=== PATIENT | male | born 1975 | race Caucasian/White ===

== ENCOUNTER 2018-01-15 12:17 | Emergency (ER) | payer SELFPAY ==
[2018-01-15 12:18] VITALS: PULSE 65; RESP 20; TEMP 36.4; O2SAT 98; BMI 33.0
--- NOTE | 2018-01-15 12:30 | CT_ITS ---
STUDY: CT ABDOMEN AND PELVIS WITH CONTRAST REASON FOR EXAM: Male, 42 years old. One day history of upper abdominal pain. Hypertension. Nausea and vomiting. RADIATION DOSAGE (If Supplied By Facility): CTDIvol = ( 16.62 ) mGy, DLP = ( 1641.17 ) mGycm TECHNIQUE: Transaxial images were obtained from the dome of the diaphragm to the symphysis pubis without oral contrast. 100 ml of Isovue 300 contrast was administered. Sagittal and coronal images were reconstructed. Individualized dose optimization techniques were used for this CT. COMPARISON: Comparison is made with prior study dated July 19, 2012. FINDINGS: The visualized lung bases are unremarkable. The visualized portions of the heart are within normal limits. Normal liver. Normal gallbladder and extrahepatic biliary system. Normal spleen. Normal pancreas. Normal bilateral adrenal glands. Normal right kidney. Normal left kidney. There is a small hiatal hernia. Normal small intestine. There are multiple colonic diverticula consistent with diverticulosis. The appendix is visualized and appears normal. Normal abdominal aorta. Normal inferior vena cava. There is borderline retroperitoneal lymphadenopathy with enlarged nodes no greater than 10mm in the short axis diameter. Normal urinary bladder. Normal abdominal wall. There are degenerative changes of the visualized lumbar spine. CT/Abdomen/Pelvis W IV Cont ONLY IMPRESSION: Sigmoid diverticulosis. Electronically Signed: Terrell Blair MD at 14:29 EST Tel [phone], Service support ,
--- NOTE | 2018-01-15 12:45 | ED.DCSUM_ITS ---
- ER Visit Summary Date of Service: 01/15/18 Chief Complaint: Abdominal pain, nausea, vomiting History of Present Illness: The patient is a 42 M presents to the emergency department with abdominal pain, nausea, vomiting. The patient states he has a history of gastritis and diverticulitis. He states last night, he went to a [employer] restaurant. He states he had a few alcoholic drinks. Overnight throughout the morning, he had worsening midepigastric abdominal pain. It has been associated with nausea and vomiting. He states that he is vomited approximately 6 times. He had no blood in the emesis. He does admit to some chills and sweats. He said no chest pain. Patient has no history of prior abd ominal surgery. He states that he will get flares like this from time to time. He states normally he will take Bentyl and antiemetics, but did not have any. Physical Examination: Vital signs reviewed General: Well-nourished, well-developed Head: Normocephalic, atraumatic Eyes: Pupils equal and reactive, extraocular muscles intact Neck, supple, no lymphadenopathy Heart: Regular rate and rhythm Respiratory: No distress, clear bilaterally Abdomen: Soft, mildly tender in the midepigastric area without rebound or guarding, no Garza sign, nondistended, no peritoneal signs Back: Nontender Extremities: Nontender, no edema, no cords Skin: Normal color no rash Neuro: Alert and oriented, no focal or lateralizing deficits Test Results: [] Emergency Department Course and Treatment: The patient presents with midepigastric abdominal pain, nausea, vomiting. He has minimal tenderness in the epigastric area. There is no tenderness in the right upper quadrant. I did obtain screening labs. His labs are unremarkable. His lipase is negative. With analgesics and antiemetics, his symptoms are markedly improved. I did obtain a CT which shows no evidence of obstruction or other dangerous intra- abdominal process. My suspicion is this is likely a gastritis. The patient be treated with antiemetics and Bentyl. His repeat exam is soft and nontender. He will be discharged home, return with any worsening symptoms. Treatment Plan: [] Disposition: Discharge Impression: 1. Acute midepigastric abdominal pain This note was generated with [employer] dictation software. It may contain incorrect words, spelling, and punctuation that were not noted in review of the chart prior to signing ED Disposition - Plan for ED Patient: Disposition: Home or Assisted Living Chief Complaint: Abd Pain Instructions: ED Abdominal Pain Unkn Cause Male Prescriptions: proMETHazine tablet [Phenergan] 25 mg PO Q6H PRN PRN #10 tab PRN Reason: Nausea RX: Dicyclomine HCl [Bentyl] 20 mg PO TIDAC #20 cap Referrals: Care Physician,No Primary [Primary Care Provider] -
[2018-01-15] MEDS: Morphine 4 MG/ML Syringe IV (12:47)
[2018-01-15] MEDS: 0.9% Normal Saline 1,000 ML 1000 ML IV (12:47)
[2018-01-15] MEDS: proMETHazine 25 MG/ML Syringe 12.5 MG IV (12:48)
[2018-01-15 12:49] VITALS: RESP 22; O2SAT 97
[2018-01-15 13:07] LABS: Absolute Neutrophil Count 11.3 X10^3/uL (2.0-7.7); Basophil# 0.03 X10^3/uL; Basophil% 0.2 % (0-1); Eosinophil# 0.08 X10^3/uL; Eosinophils% 0.6 % (0-5); Hematocrit 48.5 % (40-54); Hemoglobin 16.5 g/dl (13.0-16.5); Lymphocyte % 7.6 % (19-41); Mean Corpuscular Hgb 31.1 pg (27.0-32.0); Mean Corpuscular Volume 91.5 fL (80-94); Mean Platelet Vol. 11.3 fl (6.2-12.0); Monocyte# 0.71 X10^3/uL; Monocyte% 5.4 % (0-10); Neutrophil # 11.25 X10^3/uL (2.7-7.7); POSITIVE COUNT NO; POSITIVE DIFFERENTIAL NO; POSITIVE MORPHOLOGY NO; Platelet Count 243 K/mm3 (150-450); RBC Distribution Width CV 13.7 % (11.6-14.6); RBC Distribution Width SD 46.1 fl (35.1-43.9); White Blood Count 13.1 K/mm3 (4.4-11.0)
[2018-01-15] MEDS: HYDROmorphone 1 MG/ML Syringe IV (13:13)
[2018-01-15 13:17] LABS: ALB/GLOB Ratio 1.3 RATIO (0.9-2.4); AST(SGOT) 16 U/L (15-37); Alanine Aminotransfer ALT/SGPT 30 U/L (16-61); Albumin, Serum 4.4 g/dL (3.2-5.0); Alkaline Phosphatase 54 U/L (45-117); Anion Gap 9 (5-15); BUN 14 mg/dL (7-18); BUN/Creat Ratio 12.8 RATIO (10-20); Calcium,Total 9.3 mg/dL (8.5-10.1); Chloride 110 mmol/L (98-107); Creatinine, Serum 1.09 mg/dL (0.70-1.30); EST Glomerular Filtration Rate 80 mL/min (>60); Est Glom Filt Rate - Afr Amer 96 mL/min (>60); Estimated Creatinine Clearance 101.81 ml/min; Globulin 3.3 g/dL (2.2-4.2); Glucose 132 mg/dL (74-106); Lipase 230 U/L (73-393); Potassium 4.1 mmol/L (3.5-5.1); Protein, Total 7.7 g/dL (6.4-8.2); Sodium Level 142 mmol/L (136-145)
== END 2018-01-15 15:04 | disposition home or self-care (01) ==
PROVIDERS: Emergency Provider Emergency Medicine
DX: K52.9 Noninfective gastroenteritis and colitis, unspecified (principal); K21.9 Gastro-esophageal reflux disease without esophagitis; Z79.899 Other long term (current) drug therapy
CPT/HCPCS: 74177; 80053; 83690; 85025; 96361; 96374; 96375; 99284; J7030; Q9967; A4216

== ENCOUNTER 2023-06-03 08:57 | Observation (INO) | payer MEDICAID, SELFPAY ==
[2023-06-03] VITALS (8 sets, daily range): BP systolic 105–205; BP diastolic 63–121; PULSE 45–70; RESP 15–22; TEMP 36.6–37.5; O2SAT 98–100; BMI 33.7; BMI 34.2
--- NOTE | 2023-06-03 09:04 | ED.VIS.GI ---
HPI HPI - GI History of Present Illness Chief Complaint: Abd Pain Informant: patient Abdominal Pain/Flank Pain Onset: Today Context: Sudden Onset Timing: Continuous Quality: Aching, Dull and Sharp (At times) Location: Epigastric, RUQ and LUQ Worsened by: Nothing Relieved by: - (Vomiting) Nausea/Vomiting/Emesis GI Symptom: Positive for Nausea and Vomiting Onset: Today Quality: Positive for Nonbilious; Negative for Blood streaks, Coffee ground or Hematemesis Diarrhea/Melena/Hematochezia GI Symptom: Negative for Diarrhea, Melena or Hematochezia Associated Symptoms Associated Symptoms: Negative for Dysuria, Frequency or Hematuria Narrative Narrative: Patient presents with abdominal pain that began this morning. Patient states it began rather suddenly this morning when he woke up. Patient states the pain is constant. Patient describes the pain as dull and aching but sharp at times. Patient states the pain is over the upper abdomen. Patient states it gets better after he vomits. Patient states nothing makes it worse. Patient denies any hematemesis or coffee-ground emesis. Patient denies any diarrhea, melena, or hematochezia. Patient denies any urinary complaints. [facility] Medical History (Updated 06/03/23 @ 13:[address] Vidal Novoa, DO) Pancreatitis Home Medications albuterol sulfate 90 mcg/actuation aerosol inhaler (ProAir HFA) 2 inh inhalation Q6H PRN shortness of breath or wheezing 06/03/23 [History Last Taken 06/03/23] Allergy/AdvReac Type Severity Reaction Status Date / Time No Known Allergies Allergy Verified 06/03/23 08:57 Social History Smoking Status: Current every day smoker tobacco type: e-cigarettes ROS ROS ED Constitutional Constitutional ED: Reports chills and subjective; Denies fever(s) Eyes Eyes: Denies blurry vision or change in vision ENT ENT ED: Denies rhinorrhea or sore throat Cardiovascular Cardiovascular: Denies chest pain or palpitations Respiratory/Chest Respiratory/Chest: Denies cough or dyspnea Gastrointestinal Gastrointestinal: Reports abdominal pain, nausea and vomiting; Denies diarrhea or melena Genitourinary Genitourinary ED: Denies dysuria or hematuria Musculoskeletal Musculoskeletal: Reports back pain and neck pain Integumentary Denies abscess or rash Neurologic Neurologic: Denies headache(s) or weakness Allergic/Immunologic Allergic/Immunologic ED: Denies mouth swelling or urticaria EXAM Physical Exam Const Vital Signs: 06/03/23 08:57 06/03/23 08:57 06/03/23 11:42 Temperature 99 F 98 F Temperature Source Temporal Oral Pulse Rate 59 L 61 67 Respiratory Rate 22 H 59 H 15 Blood Pressure 205/121 H 164/113 H 129/88 H Blood Pressure Mean 149 130 101 Pulse Ox 98 100 98 Oxygen Delivery Method Room Air Room Air Room Air Positive well nourished, well developed and obese General Appearance ED: well developed and NAD Nutritional Appearance: obese HEENT Reports moist mucous membranes Neck supple and no JVD Resp normal respiratory effort and clear to auscultation bilaterally Cardio regular rate and regular rhythm GI non-distended Palpation: soft and tender epigastric, LUQ and RUQ; Negative for guarding or rebound tenderness present Neuro CN's II-XII intact bilaterally, moves all extremities and no sensory deficits noted Sensorium / Orientation: alert Motor Exam: strength 5/5 throughout MDM MDM MDM Narrative Medical decision making narrative: Differential diagnosis includes pancreatitis, gastritis, GERD, bowel obstruction, perforation, electrolyte abnormality, and anemia. CBC will be obtained to assess for leukocytosis and anemia. Comprehensive metabolic profile will be obtained to assess for hepatic function, renal function, and electrolyte abnormality. Lipase will be obtained to assess for pancreatitis. CT scan of the abdomen pelvis will be obtained to assess for bowel obstruction and perforation. Lab Data Attestation: I reviewed the patient's lab results. Lab results narrative: CBC was reviewed and was within normal limits. Comprehensive metabolic profile was reviewed and was essentially within normal limits. Lipase was reviewed and was elevated at 476. Labs: Laboratory Results - last 24 hr 06/03/23 09:10 WBC 8.9 RBC 5.32 Hgb 16.0 Hct 48.4 MCV 91.0 MCH 30.1 MCHC 33.1 RDW Std Deviation 44.9 H RDW Coeff of Sulema 13.4 Plt Count 290 MPV 11.4 Immature Gran % (Auto) 0.300 Neut % (Auto) 74.7 H Lymph % (Auto) 13.8 L [place] % (Auto) 7.1 Eos % (Auto) 2.9 Baso % (Auto) 1.2 H Absolute Neuts (auto) 6.7 Absolute Lymphs (auto) 1.23 Nucleated RBC % 0 Sodium 140 Potassium 4.2 Chloride 108 H Carbon Dioxide 26.0 Anion Gap 6 BUN 11 Creatinine 1.25 Estim Creat Clear Calc 99.58 Est GFR (MDRD) Af Amer 80 Est GFR (MDRD) Non-Af 66 BUN/Creatinine Ratio 8.8 L Glucose 123 H Calcium 9.3 Total Bilirubin 0.50 AST 20 ALT 37 Alkaline Phosphatase 58 Total Protein 7.6 Albumin 4.1 Globulin 3.5 Albumin/Globulin Ratio 1.2 Lipase 476 H Radiography Diagnostic Testing: Clinical Impression(s) from Imaging Studies Abdomen/Pelvis CT 06/03/23 11:18 IMPRESSION: 1. Diffuse thickening of the colon extending from the cecum to the rectum concerning for colitis. Under distention is possible. 2. Hepatic steatosis. 3. Small hiatal hernia. Electronically Signed: Gordo Carrera MD at 12:05 EDT , CT scan of the abdomen pelvis was obtained. There is hepatic steatosis. There is no evidence of pancreatic pseudocyst. There is diffuse thickening of the colon extending from the cecum to the rectum concerning for colitis. This was interpreted by the radiologist and was also independently reviewed by myself. Management Discussion w/another healthcare provider: Hospitalist and Shredder Picker (Dr. Sanchez from gastroenterology) Treatment and Re-Evaluation :: Patient was given IV fluids, morphine, and Zofran. Patient was also given a dose of Bentyl. Patient was advised of his findings. Patient was advised of need for hospitalization. Case was discussed with the hospitalist. He will admit the patient to his service. Case was also discussed with Dr. Sanchez from gastroenterology. He will follow along with the patient. Patient understood and was agreeable with the plan. All questions were answered. Discharge Plan Triage Chief Complaint: Abd Pain ED Provider: Vidal Novoa Dx/Rx/DC Orders Clinical Impression: Acute pancreatitis, HTN (hypertension), Colitis Prescriptions: No Action albuterol sulfate [ProAir HFA] 90 mcg/actuation HFA aerosol inhaler 2 inh inhalation Q6H PRN (Reason: shortness of breath or wheezing) Primary Care Provider: Care Physician,No Primary Referrals: Care Physician,No Primary [Primary Care Provider] - Disposition Disposition: Acute Care Hospital [facility]
[2023-06-03 09:36] LABS: Absolute Lymphocyte Count 1.23 X10^3/uL (0.83-4.51); Absolute Neutrophil Count 6.7 X10^3/uL (2.0-7.7); Basophil# 0.11 X10^3/uL; Basophil% 1.2 % (0-1); Eosinophil# 0.26 X10^3/uL; Eosinophils% 2.9 % (0-5); Hematocrit 48.4 % (40-54); Lymphocyte # 1.23 X10^3/ul (0.83-4.51); Lymphocyte % 13.8 % (19-41); Mean Corp Hgb Conc 33.1 g/dL (32-36); Mean Corpuscular Hgb 30.1 pg (27.0-32.0); Mean Platelet Vol. 11.4 fl (6.2-12.0); Monocyte# 0.63 X10^3/uL; Monocyte% 7.1 % (0-10); NRBC Flagged by Analyzer 0 % (0-5); Neutrophil # 6.67 X10^3/uL (2.7-7.7); Neutrophil % 74.7 % (47-70); Platelet Count 290 K/mm3 (150-450); RBC Distribution Width CV 13.4 % (11.6-14.6); RBC Distribution Width SD 44.9 fl (35.1-43.9); Red Blood Count 5.32 M/mm3 (4.6-6.2); White Blood Count 8.9 K/mm3 (4.4-11.0)
[2023-06-03] MEDS: Morphine 4 MG/ML Syringe IV (09:52)
[2023-06-03] MEDS: Ondansetron 4 MG/2 ML Vial IV ×2 (09:52→14:38)
[2023-06-03] MEDS: 0.9% Normal Saline (1000mL) 1,000 ML 1000 ML IV (09:53)
[2023-06-03 11:02] LABS: ALB/GLOB Ratio 1.2 RATIO (0.9-2.4); AST(SGOT) 20 U/L (15-37); Alanine Aminotransfer ALT/SGPT 37 U/L (16-61); Albumin, Serum 4.1 g/dL (3.2-5.0); Alkaline Phosphatase 58 U/L (45-117); Anion Gap 6 (5-15); BUN 11 mg/dL (7-18); BUN/Creat Ratio 8.8 RATIO (10-20); Calcium,Total 9.3 mg/dL (8.5-10.1); Chloride 108 mmol/L (98-107); Creatinine, Serum 1.25 mg/dL (0.70-1.30); EST Glomerular Filtration Rate 66 mL/min (>60); Est Glom Filt Rate - Afr Amer 80 mL/min (>60); Estimated Creatinine Clearance 99.58 ml/min; Globulin 3.5 g/dL (2.2-4.2); Glucose 123 mg/dL (74-106); Lipase 476 U/L (13-75); Potassium 4.2 mmol/L (3.5-5.1); Protein, Total 7.6 g/dL (6.4-8.2); Sodium Level 140 mmol/L (136-145)
--- NOTE | 2023-06-03 11:18 | CT_ITS ---
STUDY: CT ABDOMEN AND PELVIS WITH CONTRAST - URINARY TRACT REASON FOR EXAM: Male, 47 years old. PAIN RADIATION DOSAGE (If Supplied By Facility): CTDIvol = ( 21.91 ) mGy, DLP = ( 1375.58 ) mGycm TECHNIQUE: IV 100mL Isovue-370 was administered. Transaxial images were obtained from the dome of the diaphragm to the symphysis pubis in the arterial, nephrographic and excretory phases. Multiplanar coronal and sagittal images were reformatted. Individualized Dose Optimization Techniques Were Used For This CT. COMPARISON: No relevant prior comparison study available FINDINGS: The visualized lung bases are unremarkable. The visualized portions of the heart are within normal limits. There is decreased attenuation of the liver consistent with steatosis. Normal gallbladder and extrahepatic biliary system. Normal spleen. Normal pancreas. Normal bilateral adrenal glands. There is a small hiatal hernia. Normal small intestine. Diffuse thickening of the colon extending from the cecum to the rectum concerning for colitis. Under distention is possible.. The appendix is visualized and appears normal. No evidence of abdominal aortic aneurysm. No retroperitoneal adenopathy. Normal right kidney. Normal left kidney. Normal urinary bladder. Normal abdominal wall. Mild degenerative changes of the spine. CT/Abdomen/Pelvis W IV Cont ONLY IMPRESSION: 1. Diffuse thickening of the colon extending from the cecum to the rectum concerning for colitis. Under distention is possible. 2. Hepatic steatosis. 3. Small hiatal hernia. Electronically Signed: Gordo Carrera MD at 12:05 EDT ,
[2023-06-03] MEDS: Dicyclomine 20 MG/2 ML Vial IM (11:39)
--- NOTE | 2023-06-03 12:56 | HP.PCM.HOS_ITS ---
HPI - General General Date of Admission: 06/03/23 Date of Service: 06/03/23 Chief Complaint: abdominal pain HPI Narrative RADHA WILKES, is a 47 M who presented to [facility] ED on 06/03/2023 with worsening abdominal pain. Patient seen at bedside in the ED. Patient was sitting up in bed and appeared moderately uncomfortable during our encounter. Stated that his abdominal pain began early this morning and worsened quickly causing him to come in for further evaluation. Was found on CT abdomen/pelvis w/ IV contrast to have diffuse thickening of the colon extending from the cecum to the rectum concerning for colitis. Labs were notable for benign CBC and CMP but lipase was elevated at 476. Was noted by ED physician that patient had history of pancreatitis, and due to concern for recurrent pancreatitis as well as colitis, hospitalist was contacted for admission. On further history from patient as well as chart review of [facility] records, noted that patient had history of chronic pancreatitis back in 2019 secondary to pancreatic divisum. Had ERCP with stent placement in 01/2020 done at [facility] that was complicated by severe post-ERCP pain and N/V with lipase > 9K necessitating transfer to [facility] for further management for post-ERCP pancreatitis. Had repeat ERCP w/ stent removal at [facility] 5 days after stent placement. Patient notes today that he was incarcerated for the past few years, was recently released from jail in January. This episode today is his second attack since January. He denies any significant abdominal issues while incarcerated. He does smoke marijuana on a daily basis but reports very occasional alcohol use. He is not taking any home meds at this time. Patient denies any other health concerns over the past few years. He currently denies any fevers/chills. Primary concern is ongoing abdominal pain with nausea/vomiting. States that the abdominal pain is primarily epigastric, has minimal in the mid to lower abdomen. Has had a few episodes of diarrhea this morning, was otherwise having normal BM's til today. Denies any dark or bloody BM's. Denies any acid reflux symptoms recently. No other acute concerns. [facility] Medical History (Updated 06/03/23 @ 14:01 by Christine Bueno) Colitis Diverticulitis Intestinal ulcer Marijuana dependence Pancreatitis Home Medications albuterol sulfate 90 mcg/actuation aerosol inhaler (ProAir HFA) 2 inh inhalation Q6H PRN shortness of breath or wheezing 06/03/23 [History Last Taken 06/03/23] Allergy/AdvReac Type Severity Reaction Status Date / Time No Known Allergies Allergy Verified 06/03/23 08:57 Social History Smoking Status: Former smoker ROS Constitutional Constitutional: Denies chills, fatigue, fever(s) or weakness Eyes Eyes: Denies change in vision Cardiovascular Cardiovascular: Denies chest pain Respiratory/Chest Respiratory/Chest: Denies shortness of breath at rest Gastrointestinal Gastrointestinal: Reports abdominal pain, diarrhea, nausea and vomiting; Denies constipation or dyspepsia Genitourinary Genitourinary: Denies dysuria Vital Signs Vital Signs Vital Signs: 06/03/23 08:57 06/03/23 08:57 06/03/23 11:42 Temperature 99 F 98 F Temperature Source Temporal Oral Pulse Rate 59 L 61 67 Respiratory Rate 22 H 59 H 15 Blood Pressure 205/121 H 164/113 H 129/88 H Blood Pressure Mean 149 130 101 Pulse Ox 98 100 98 Oxygen Delivery Method Room Air Room Air Room Air Weight Weight: 116 kg Body Mass Index (BMI) 33.7 Physical Exam Const alert and oriented x3 Constitutional Narrative: Middle aged male, obese, sitting up in bed, conversing normally, moderate dis comfort noted due to abdominal pain. General Appearance: cooperative HEENT normocephalic, head/scalp atraumatic, hearing grossly normal bilaterally and nasal mucous membranes and turbinates normal Eyes PERRL, EOMs intact bilaterally and conjunctivae normal Neck full ROM Chest inspection of chest normal Resp normal respiratory effort, normal air movement, no use of accessory muscles and clear to auscultation bilaterally Cardio regular rate, regular rhythm, no murmurs and peripheral pulses 2+ throughout GI GI Narrative: Moderate tenderness to palpation in epigastric area, no tenderness in mid to lower abdomen w/ palpation. Abdomen soft and non-distended. No guarding or rebound tenderness noted. Back/Spine normal ROM Extremity normal to inspection, full ROM and no pedal edema Skin no rashes or lesions noted Neuro moves all extremities and no focal motor deficits Speech: speech normal Psych mental status grossly normal Results Lab / Micro Data 06/03/23 09:10 06/03/23 09:10 Labs: Laboratory Results - last 24 hr 06/03/23 09:10: WBC 8.9, RBC 5.32, Hgb 16.0, Hct 48.4, MCV 91.0, MCH 30.1, MCHC 33.1, RDW Std Deviation 44.9 H, RDW Coeff of Sulema 13.4, Plt Count 290, MPV 11.4, Immature Gran % (Auto) 0.300, Neut % (Auto) 74.7 H, Lymph % (Auto) 13.8 L, [place] % (Auto) 7.1, Eos % (Auto) 2.9, Baso % (Auto) 1.2 H, Absolute Neuts (auto) 6.7, Absolute Lymphs (auto) 1.23, Nucleated RBC % 0, Sodium 140, Potassium 4.2, Chloride 108 H, Carbon Dioxide 26.0, Anion Gap 6, BUN 11, Creatinine 1.25, Estim Creat Clear Calc 99.58, Est GFR (MDRD) Af Amer 80, Est GFR (MDRD) Non-Af 66, BUN/Creatinine Ratio 8.8 L, Glucose 123 H, Calcium 9.3, Total Bilirubin 0.50, AST 20, ALT 37, Alkaline Phosphatase 58, Total Protein 7.6, Albumin 4.1, Globulin 3.5, Albumin/Globulin Ratio 1.2, Lipase 476 H Imaging Radiology Impression Abdomen/Pelvis CT 06/03/23 11:18 IMPRESSION: 1. Diffuse thickening of the colon extending from the cecum to the rectum concerning for colitis. Under distention is possible. 2. Hepatic steatosis. 3. Small hiatal hernia. Electronically Signed: Gordo Carrera MD at 12:05 EDT , Assessment & Plan Assessment/Plan (1) Colitis: (2) Acute pancreatitis: PLAN: Plan Patient is a 47 M who presented to [facility] ED on 06/03/2023 with worsening abdominal pain. 1. Intractable nausea/vomiting with abdominal pain, concern for recurrent pancreatitis, concern for colitis of unclear etiology CTAP w/ IV contrast on admit showed diffuse thickening of colon extending from cecum to rectum concerning for colitis, as well as hepatic steatosis, normal pancreas, no other concerning findings. Lipase 476. Labs otherwise benign. Afebrile, hemodynamically stable on room air on admit. - Admit under inpatient status to [facility]. GI consulted. Differential dx for colitis is broad as noted by GI. Patient will need both upper and lower endoscopy for further evaluation. Remain n.p.o. for now. Maintenaince IV fluids. Several labs ordered including stool PCR, stool WBC and calprotectin, autoimmune workup per GI. Okay to treat w/ IV cipro and IV flagyl for now. 2. Marijuana use, concern for cyclic vomiting syndrome - Patient reports smoking marijuana daily over past few years. Did report an intermittent pattern of vomiting and nausea w/ BM's, w/ hot showers helping to relieve his nausea. Encouraged cessation. 3. Obesity - BMI 34 on admit. Encouraged lifestyle modifications. Complicates hospital course, care and prognosis. DVT prophylaxis: Lovenox Code status: Full code, verified Expected disposition: Home, TBD Total clinical time spent by myself addressing the patient's medical issues, reviewing all the data, and collaborating with patient's care team: 35 minutes. Charges/Coding Visit Charges Inpatient E&M: 31239 Init Hosp L2
[2023-06-03 13:59] LABS: Erythrocyte Sedimentation Rate < 1 mm/hr (0-20)
[2023-06-03] MEDS: Lactated Ringers 1,000 ML 125 ML IV (14:08)
[2023-06-03] MEDS: HYDROmorphone 0.5 MG/0.5 ML SYRINGE IV ×2 (14:09→18:07)
[2023-06-03] MEDS: metroNIDAZOLE 500 MG/100 ML BAG 100 MG IV ×2 (14:33→21:02)
[2023-06-03] MEDS: 0.9% Saline Lock 10 ML Syringe IV ×2 (14:38→18:07)
[2023-06-03 14:46] LABS: Hemoglobin A1c 5.2 % (3.8-5.6)
[2023-06-03 15:06] LABS: Alcohol, Blood (Medical)-Serum < 3.0 mg/dL
[2023-06-03 15:13] LABS: CRP < 2.90 mg/L (0.0-3.0); Cholesterol 225 mg/dL (200); High Density Lipoprotein 40 mg/dL; Triglycerides 182 mg/dL; Very Low Density Lipoprotein 36 mg/dL (5-40)
--- NOTE | 2023-06-03 15:40 | CON.PCM.GI_ITS ---
HPI Consult Data Date of Consult: 06/03/23 HPI Narrative Reason for Consultation: abdominal pain HPI Narrative: RADHA WILKES, is a 47 M who presents with abdominal pain that began this morning. Patient states it began rather suddenly this morning when he woke up. Patient states the pain is constant. Patient describes the pain as dull and aching but sharp at times. Patient states the pain is over the upper abdomen. Patient states it gets better after he vomits. Patient states nothing makes it worse. Patient denies any hematemesis or coffee-ground emesis. Patient denies any diarrhea, melena, or hematochezia. Patient denies any urinary complaints. He had a similar presentation where he presented to the hospital approximately 12 years ago and was seen by Dr. Garza who is a local chartered financial analyst at that time. He has been intermittently here to the hospital for worsening abdominal pain and was discovered to have a hyper lipase anemia without imaging confirming pancreatitis. Current CT scan abdomen pelvis displays: 1. Diffuse thickening of the colon extending from the cecum to the rectum concerning for colitis. Under distention is possible. 2. Hepatic steatosis. 3. Small hiatal hernia. [facility] Medical History (Updated 06/03/23 @ 14:01 by Christine Bueno) Colitis Diverticulitis Intestinal ulcer Marijuana dependence Pancreatitis Home Medications albuterol sulfate 90 mcg/actuation aerosol inhaler (ProAir HFA) 2 inh inhalation Q6H PRN shortness of breath or wheezing 06/03/23 [History Last Taken 06/03/23] Allergy/AdvReac Type Severity Reaction Status Date / Time No Known Allergies Allergy Verified 06/03/23 08:57 Social History Smoking Status: Former smoker ROS Review of Systems ROS Unobtainable: other Constitutional Constitutional: Denies fatigue, fever(s), poor appetite, weight gain or weight loss ENT HEENT: Denies mouth lesions Cardiovascular Cardiovascular: Denies abdominal bloating, abdominal edema or abdominal pain Respiratory/Chest Respiratory/Chest: Denies change in mental status, change in phlegm color, chest congestion or chest tightness Gastrointestinal Gastrointestinal: Denies belching, bloating, change in bowel habits, change in stool character, chewing difficulty, coffee ground emesis, constipation, cramping, diarrhea, dyspepsia, dysphagia, early satiety, excessive flatus, fecal incontinence, heartburn, hematemesis, hematochezia, hemorrhoids, loose stools, melena, nausea, odynophagia, rectal bleeding, tenesmus, vomiting or weight changes Genitourinary Genitourinary: Denies abdominal discomfort, burning urination or itching Musculoskeletal Musculoskeletal: Reports as per HPI; Denies muscle weakness or myalgias Integumentary Integumentary: Denies jaundice Neurologic Neurologic: Denies lack of coordination or weakness Psychiatric Psychiatric: Denies confusion, depression, memory loss, mood swings, paranoia or suicidal ideation Endocrine Endocrinology: Denies systems reviewed and no addt'l complaints, except as documented Hematologic/Lymphatic Hematologic/Lymphatic: Denies anemia, easy bleeding, easy bruising or lymphadenopathy Allergic/Immunologic Allergic/Immunologic: Denies systems reviewed and no addt'l complaints, except as documented Physical Exam Const alert, oriented x3, no apparent distress, healthy appearing and well nourished General Appearance: cooperative, comfortable, well kempt and well developed Orientation / Consciousness: awake and oriented to person HEENT Head and Scalp: normocephalic and atraumatic Face and Sinus: normal facial exam Mouth: oral and palatal mucosa normal Eyes General Eye: normal appearance of both eyes Neck full ROM Lymph Lymphatic: no lymphadenopathy noted Chest inspection of chest normal Resp normal respiratory effort and no use of accessory muscles Cardio regular rate and regular rhythm GI normal to inspection, nondistended, normoactive bowel sounds, soft to palpation, non-tender, non-distended and no masses Auscultation: normoactive bowel sounds Palpation: soft Percussion: normal to percussion Rectal Exam: visual inspection normal and normal sphincter tone no CVA tenderness Back/Spine no CVA tenderness and normal ROM Extremity normal to inspection Peripheral Pulses: Yes pulses 2+ throughout Skin no rashes or lesions noted General Skin Exam: no breakdown, elasticity normal and turgor normal Neuro oriented x3 Motor Exam: strength 5/5 throughout Psych mental status grossly normal Appearance: grossly normal Attitude: calm Activity / Motor Behavior: appropriate eye contact Speech: normal speech Thought Process: normal thought process Thought Content: normal thought content Attention / Concentration: attention grossly intact Memory / Cognition: memory grossly intact Insight: insight good Judgement: judgement good Lab / Micro Data 06/03/23 09:10 06/03/23 09:10 Labs: Laboratory Results - last 24 hr 06/03/23 09:10: WBC 8.9, RBC 5.32, Hgb 16.0, Hct 48.4, MCV 91.0, MCH 30.1, MCHC 33.1, RDW Std Deviation 44.9 H, RDW Coeff of Sulema 13.4, Plt Count 290, MPV 11.4, Immature Gran % (Auto) 0.300, Neut % (Auto) 74.7 H, Lymph % (Auto) 13.8 L, [place] % (Auto) 7.1, Eos % (Auto) 2.9, Baso % (Auto) 1.2 H, Absolute Neuts (auto) 6.7, Absolute Lymphs (auto) 1.23, Nucleated RBC % 0, ESR < 1, Sodium 140, Potassium 4.2, Chloride 108 H, Carbon Dioxide 26.0, Anion Gap 6, BUN 11, Creatinine 1.25, Estim Creat Clear Calc 99.58, Est GFR (MDRD) Af Amer 80, Est GFR (MDRD) Non-Af 66, BUN/Creatinine Ratio 8.8 L, Glucose 123 H, Hemoglobin A1c 5.2, Calcium 9.3, Total Bilirubin 0.50, AST 20, ALT 37, Alkaline Phosphatase 58, C-React Prot Ext Range < 2.90, Total Protein 7.6, Albumin 4.1, Globulin 3.5, Albumin/Globulin Ratio 1.2, Triglycerides 182, Cholesterol 225 H, LDL Cholesterol 149 H, VLDL Cholesterol 36, HDL Cholesterol 40, Lipase 476 H 06/03/23 14:35: Ethyl Alcohol < 3.0 Imaging Radiology Impression Abdomen/Pelvis CT 06/03/23 11:18 IMPRESSION: 1. Diffuse thickening of the colon extending from the cecum to the rectum concerning for colitis. Under distention is possible. 2. Hepatic steatosis. 3. Small hiatal hernia. Electronically Signed: Gordo Carrera MD at 12:05 EDT , Assessment & Plan Assessment/Plan (1) Marijuana smoker: (2) Personality disorder: (3) Acute pancreatitis: (4) Colitis: PLAN: Plan 47 year old, with a history of obesity, personality disorder, and g astroesophageal reflux presented to [facility] with a two-day history of severe nausea and intractable vomiting. The vomiting began with no identifiable precipitating factor, was bilious but non-bloody, and occurred as frequently as six times per hour. The patient reported abdominal pain and lightheadedness secondary to dehydration but denied any fever, coryza, change in bowel movements, or sick contacts. The patient had been experiencing similar episodes recurrently for the past 2 years, frequently associated with life stressors and requiring at least five previous hospitalizations.? However he does have elevated amylase lipase and CT findings of diffuse colitis. He also has a family member with Crohn's disease. Notably, however, the patient had been an intermittent, recreational marijuana u ser for many years prior but had escalated to daily use over the past 2 years for symptom relief, citing the known antiemetic effects of cannabis. In addition, he described an intermittent pattern of bathing, stating that he often felt nauseated when having bowel movements and had discovered that transitioning directly from the toilet to a hot shower helped resolve his nausea. . Differential diagnosis does include: Marijuana hyperemesis with ischemic colitis, infectious colitis, gastroparesis, gastritis, duodenitis, inflammatory bowel disease, celiac disease, eosinophilic gastroenteritis. He should undergo an upper and lower endoscopy to evaluate his upper lower GI tract with biopsies in his esophagus stomach small bowel and colon. He should have his stools checked for enteric pathogens. He should also have autoimmune workup including ANCA, [place], ESR, CRP, IgG4, food allergy testing, MRI , serum and urine electrophoresis. Charges/Coding Visit Charges Inpatient E&M: 38042 Init Hosp L3
[2023-06-03] MEDS: oxyCODONE 5 MG Tablet PO ×2 (15:48→21:03)
[2023-06-03] MEDS: Ciprofloxacin 400 MG/200 ML BAG 200 MG IV ×2 (15:49→21:02)
[2023-06-03] MEDS: Acetaminophen 325 MG Tablet 650 MG PO (15:49)
[2023-06-03 17:21] LABS: Erythrocyte Sedimentation Rate 3 mm/hr (0-20)
[2023-06-03 17:32] LABS: CRP < 2.90 mg/L (0.0-3.0)
[2023-06-03] MEDS: proCHLORPERazine 10 MG/2 ML Vial 5 MG IV (21:08)
[2023-06-04] MEDS: Lactated Ringers 1,000 ML 125 ML IV ×2 (01:59→09:54)
[2023-06-04] MEDS: oxyCODONE 5 MG Tablet PO ×2 (02:04→19:57)
[2023-06-04 03:34] LABS: Amphetamine Urine VISTA NEGATIVE (<1000 ng/mL); Barbiturate Urine VISTA NEGATIVE (< 200 ng/mL); Benzodiazepine Urine VISTA NEGATIVE (< 200 ng/mL); Cocaine Urine VISTA NEGATIVE (< 300 ng/mL); Ecstacy Urine VISTA NEGATIVE (< 500 ng/mL); Methadone Urine VISTA NEGATIVE (< 300 ng/mL); PCP Urine VISTA NEGATIVE (< 25 ng/mL); THC Urine VISTA POSITIVE (< 50 ng/mL); Vista UDS pH Range 7
[2023-06-04] MEDS: HYDROmorphone 0.5 MG/0.5 ML SYRINGE IV ×4 (03:40→23:02)
[2023-06-04] MEDS: metroNIDAZOLE 500 MG/100 ML BAG 100 MG IV ×3 (05:40→21:19)
[2023-06-04 07:18] LABS: Hemoglobin 13.4 g/dL (13.0-16.5); Mean Corp Hgb Conc 33.5 g/dL (32-36); Mean Corpuscular Hgb 30.1 pg (27.0-32.0); Mean Corpuscular Volume 89.9 fL (80-94); Mean Platelet Vol. 11.4 fl (6.2-12.0); Platelet Count 243 K/mm3 (150-450); RBC Distribution Width CV 13.4 % (11.6-14.6); RBC Distribution Width SD 44.2 fl (35.1-43.9); Red Blood Count 4.45 M/mm3 (4.6-6.2)
[2023-06-04 07:33] VITALS: O2SAT 97
[2023-06-04 08:12] LABS: Anion Gap 5 (5-15); BUN 15 mg/dL (7-18); BUN/Creat Ratio 13.3 RATIO (10-20); Calcium,Total 8.2 mg/dL (8.5-10.1); Chloride 110 mmol/L (98-107); Creatinine, Serum 1.13 mg/dL (0.70-1.30); EST Glomerular Filtration Rate 74 mL/min (>60); Est Glom Filt Rate - Afr Amer 90 mL/min (>60); Estimated Creatinine Clearance 110.85 ml/min; Glucose 105 mg/dL (74-106); Potassium 3.6 mmol/L (3.5-5.1); Sodium Level 141 mmol/L (136-145)
[2023-06-04] MEDS: Ciprofloxacin 400 MG/200 ML BAG 200 MG IV ×2 (09:53→22:20)
[2023-06-04] MEDS: Enoxaparin 40 MG/0.4 ML Syringe SC (09:53)
[2023-06-04 09:59] VITALS: BP 135/88; PULSE 68; RESP 14; TEMP 36.6; O2SAT 100
--- NOTE | 2023-06-04 10:59 | PN.HOSP_ITS ---
Reason for Visit Reason for Visit: Diagnoses Cannabis dependence, uncomplicated (06/03/23) Personality disorder, unspecified (06/03/23) Noninfective gastroenteritis and colitis, unspecified (06/03/23) Acute pancreatitis without necrosis or infection, unspecified (06/03/23) Subjective Subjective No acute events overnight. Patient seen at bedside this morning. Appears much more comfortable this morning than he did in the ED yesterday. He was sitting up comfortably in bed, conversing normally and in no acute distress. Patient does state that he just received more pain medication 30 minutes to an hour ago and this was helpful for him. Generally states that his pain in the epigastric area is moderately improved from yesterday. He has not had any bowel movement since admission and denies any lower abdominal pain. He has been n.p.o. since admission, notes that he does feel moderately hungry this morning but does state that he has a bit fearful about trying p.o. intake in case this causes nausea and vomiting. Denies any fevers or chills. No other acute concerns this morning. Objective Data Objective Data Vital Signs: Vital Signs Temp Pulse Resp BP Pulse Ox O2 Del Method 98 F 68 14 135/88 H 100 Room Air 06/04/23 09:59 06/04/23 09:59 06/04/23 09:59 06/04/23 09:59 06/04/23 09:59 06/04/23 09:59 Oxygen Delivery Method Room Air Weight: 117.48 kg Body Mass Index (BMI) 34.2 Intake & Output: Intake and Output for Last 24 Hours 06/02/23 06/03/23 06/04/23 23:59 23:59 23:59 Intake Total 1652.08 / 1652.08 2039.58 / 2038.58 Output Total 500 / 500 Balance 1152.08 / 1152.08 2038.58 / 2038.58 Lab / Micro Data 06/04/23 06:42 06/04/23 06:42 Labs: Laboratory Results - last 24 hr 06/03/23 09:10: ESR < 1, Sodium 140, Potassium 4.2, Chloride 108 H, Carbon Dioxide 26.0, Anion Gap 6, BUN 11, Creatinine 1.25, Estim Creat Clear Calc 99. 58, Est GFR (MDRD) Af Amer 80, Est GFR (MDRD) Non-Af 66, BUN/Creatinine Ratio 8.8 L, Glucose 123 H, Hemoglobin A1c 5.2, Calcium 9.3, Total Bilirubin 0.50, AST 20, ALT 37, Alkaline Phosphatase 58, C-React Prot Ext Range < 2.90, Total Protein 7.6, Albumin 4.1, Globulin 3.5, Albumin/Globulin Ratio 1.2, Triglycerides 182, Cholesterol 225 H, LDL Cholesterol 149 H, VLDL Cholesterol 36, HDL Cholesterol 40, Lipase 476 H 06/03/23 14:35: Ethyl Alcohol < 3.0 06/03/23 16:50: ESR 3, C-React Prot Ext Range < 2.90 06/04/23 02:50: Urine Opiates Screen POSITIVE H, Urine Methadone Screen NEGATIVE, Ur Barbiturates Screen NEGATIVE, Ur Phencyclidine Scrn NEGATIVE, Ur Amphetamines Screen NEGATIVE, MDMA (Ecstasy) Screen NEGATIVE, U Benzodiazepines Scrn NEGATIVE, Urine Cocaine Screen NEGATIVE, U Cannabinoids Screen POSITIVE H, Ur Drug Screen Comment 06/04/23 06:42: WBC 10.0, RBC 4.45 L, Hgb 13.4, Hct 40.0, MCV 89.9, MCH 30.1, MCHC 33.5, RDW Std Deviation 44.2 H, RDW Coeff of Sulema 13.4, Plt Count 243, MPV 11.4, Sodium 141, Potassium 3.6, Chloride 110 H, Carbon Dioxide 26.0, Anion Gap 5, BUN 15, Creatinine 1.13, Estim Creat Clear Calc 110.85, Est GFR (MDRD) Af Amer 90, Est GFR (MDRD) Non-Af 74, BUN/Creatinine Ratio 13.3, Glucose 105, Calcium 8.2 L Radiography Diagnostic Testing: Radiology Impression Abdomen/Pelvis CT 06/03/23 11:18 IMPRESSION: 1. Diffuse thickening of the colon extending from the cecum to the rectum concerning for colitis. Under distention is possible. 2. Hepatic steatosis. 3. Small hiatal hernia. Electronically Signed: Gordo Carrera MD at 12:05 EDT , Physical Exam Const alert and oriented x3 Constitutional Narrative: Middle aged male, obese, appears much improved from admission, sitting up comfortably in bed, conversing normally, in no acute distress. General Appearance: cooperative HEENT normocephalic, head/scalp atraumatic, hearing grossly normal bilaterally and nasal mucous membranes and turbinates normal Eyes PERRL, EOMs intact bilaterally and conjunctivae normal Neck full ROM Chest inspection of chest normal Resp normal respiratory effort, normal air movement, no use of accessory muscles and clear to auscultation bilaterally Cardio regular rate, regular rhythm, no murmurs and peripheral pulses 2+ throughout GI GI Narrative: Very mild tenderness to palpation in epigastric area. No tenderness in mid to lower abdomen on palpation. Abdomen soft and nondistended, no guarding or rebound tenderness noted. Back/Spine normal ROM Extremity normal to inspection, full ROM and no pedal edema Skin no rashes or lesions noted Neuro moves all extremities and no focal motor deficits Speech: speech normal Psych mental status grossly normal Assessment & Plan Assessment/Plan (1) Colitis: (2) Acute pancreatitis: PLAN: Plan Patient is a 47 M who presented to [facility] ED on 06/03/2023 with worsening abdominal pain. 1. Intractable nausea/vomiting with abdominal pain, concern for recurrent pancreatitis, concern for colitis of unclear etiology CTAP w/ IV contrast on admit showed diffuse thickening of colon extending from cecum to rectum concerning for colitis, as well as hepatic steatosis, normal pancreas, no other concerning findings. Lipase 476. Labs otherwise benign. Afebrile, hemodynamically stable on room air on admit. ? GI following. Differential dx for colitis is broad as noted by GI. Patient will need both upper and lower endoscopy for further evaluation. Patient appears much improved from pain standpoint on hospital day 2. Will trial liquid diet with slow advancement, with plan to make patient n.p.o. again at midnight for MRCP, gastric emptying study and possible scopes tomorrow. Extensive lab workup ordered, follow-up. Okay to continue IV Cipro and IV Flagyl for now. 2. Marijuana use, concern for cyclic vomiting syndrome ? Patient reports smoking marijuana daily over past few years. Did report an intermittent pattern of vomiting and nausea w/ BM's, w/ hot showers helping to relieve his nausea. Encouraged cessation. 3. Obesity ? BMI 34 on admit. Encouraged lifestyle modifications. Complicates hospital course, care and prognosis. DVT prophylaxis: Lovenox Code status: Full code, verified Expected disposition: Home, TBD Total clinical time spent by myself addressing the patient's medical issues, reviewing all the data, and collaborating with patient's care team: 35 minutes. Charges/Coding Visit Charges Inpatient E&M: 26001 Subs Hosp L2
[2023-06-04 14:34] VITALS: BP 116/70; PULSE 58; RESP 16; TEMP 36.7; O2SAT 98
[2023-06-04 15:32] LABS: Bacteria 0 SEEN /hpf (None Seen); Mucous, Urine 0 SEEN /hpf (<or=2+)
[2023-06-04 15:35] LABS: Color, Urine Yellow (Yellow); Glucose, Dipstick Normal (Normal); Ketone-Dipstick 50 mg/dl (Negative); Leukocyte Esterase-Dipstick 25 /ul (Negative); Nitrite-Dipstick Negative (Negative); Occult Blood-Urine 50 /ul (Negative); Protein-Dipstick 30 mg/dl (Negative); Specific Gravity, Urine 1.015 (1.002-1.030); Urine Bilirubin Dipstick Negative (Negative); Urine Clarity Clear (Clear); Urine Urobilinogen Normal (Normal)
[2023-06-04 15:41] LABS: Red Blood Cells-Urine 0-5 SEEN /hpf (0-5); Squamous Epithelial Cells - UA 0-5 SEEN /hpf (0-5); White Blood Cells 5-10 SEEN /hpf (0-5)
[2023-06-04 19:50] VITALS: BP 136/87; PULSE 66; RESP 18; TEMP 36.7; O2SAT 97
[2023-06-04] MEDS: Acetaminophen 325 MG Tablet 650 MG PO (19:57)
[2023-06-04] MEDS: MELATONIN 3 MG TABLET PO (23:03)
[2023-06-05 02:00] VITALS: BP 132/85; PULSE 54; RESP 18; TEMP 36.6; O2SAT 99
[2023-06-05] MEDS: HYDROmorphone 0.5 MG/0.5 ML SYRINGE IV ×2 (04:49→08:03)
[2023-06-05] MEDS: Lactated Ringers 1,000 ML 75 ML IV (04:49)
[2023-06-05] MEDS: metroNIDAZOLE 500 MG/100 ML BAG 100 MG IV (04:53)
--- NOTE | 2023-06-05 06:00 | MRI_ITS ---
STUDY: MRI ABDOMEN WITHOUT CONTRAST REASON FOR EXAM: Male, 47 years old. pancreatitis, elevated labs, worsening abd pain TECHNIQUE: Standardized fat and water weighted pulse sequences were obtained in all 3 orthogonal planes. 3-D reconstructions are included. COMPARISON: CT of abdomen and pelvis dated June 03, 2023 FINDINGS: The visualized lung bases are unremarkable. The visualized portions of the heart are within normal limits. Normal liver. Normal gallbladder and extrahepatic biliary system. There is no demonstrated gallbladder wall thickening, pericholecystic fluid, or intraluminal stones. No ductal dilatation is visualized. Normal spleen. Normal pancreas. Normal bilateral adrenal glands. A tiny cyst is present in the lower pole of the right kidney which is otherwise normal. No hydronephrosis is present. Normal left kidney. Normal visualized stomach. Normal small intestine. There are multiple cecal colonic diverticula consistent with diverticulosis. Normal abdominal aorta. Normal inferior vena cava. Normal retroperitoneum. Normal abdominal wall. Normal osseous structures. IMPRESSION: 1. Normal gallbladder and extrahepatic biliary system. There is no demonstrated gallbladder wall thickening, pericholecystic fluid, or intraluminal stones. No ductal dilatation is visualized. 2. Cecal diverticulosis. STUDY: MR CHOLANGIOPANCREATOGRAPHY (MRCP) REASON FOR EXAM: Male, 47 years old. pancreatitis, elevated labs, worsening abd pain TECHNIQUE: Standard MRCP technique was utilized. 3-D reconstructions are included. COMPARISON: None. FINDINGS: Gall Bladder: Normal with no distention or demonstrated fixed intraluminal filling defect. Cystic duct: Normal with no demonstrated fixed filling defect. Intrahepatic ducts: Normal visualized intrahepatic ducts with no demonstrated fixed filling defect, dilation or stricture. Common hepatic duct: Normal with no demonstrated fixed filling defect, dilation or stricture. Common bile duct: Normal with no demonstrated fixed filling defect, dilation or stricture. Pancreatic duct: Normal with no demonstrated fixed filling defect, dilation or stricture. MRI/MRCP Abdomen without Contrast IMPRESSION: 1. Normal MR Cholangiopancreatography (MRCP). Electronically Signed: Mike Hernandez MD at 9:47 EDT ,
[2023-06-05 06:22] LABS: Hematocrit 41.8 % (40-54); Hemoglobin 13.7 g/dL (13.0-16.5); Mean Corp Hgb Conc 32.8 g/dL (32-36); Mean Corpuscular Hgb 29.8 pg (27.0-32.0); Mean Corpuscular Volume 91.1 fL (80-94); Mean Platelet Vol. 11.7 fl (6.2-12.0); Platelet Count 227 K/mm3 (150-450); RBC Distribution Width CV 13.2 % (11.6-14.6); RBC Distribution Width SD 44.2 fl (35.1-43.9); Red Blood Count 4.59 M/mm3 (4.6-6.2); White Blood Count 6.1 K/mm3 (4.4-11.0)
[2023-06-05 06:50] LABS: Anion Gap 4 (5-15); BUN 14 mg/dL (7-18); Calcium,Total 8.5 mg/dL (8.5-10.1); Chloride 109 mmol/L (98-107); Creatinine, Serum 1.17 mg/dL (0.70-1.30); EST Glomerular Filtration Rate 71 mL/min (>60); Est Glom Filt Rate - Afr Amer 86 mL/min (>60); Estimated Creatinine Clearance 107.06 ml/min; Glucose 93 mg/dL (74-106); Potassium 3.6 mmol/L (3.5-5.1); Sodium Level 140 mmol/L (136-145)
[2023-06-05 06:56] VITALS: O2SAT 98
[2023-06-05 07:56] VITALS: BP 126/86; PULSE 60; RESP 16; TEMP 37.1; O2SAT 98
[2023-06-05] MEDS: 0.9% Saline Lock 10 ML Syringe IV (08:03)
[2023-06-05] MEDS: Ciprofloxacin 400 MG/200 ML BAG 200 MG IV (08:09)
[2023-06-05 08:23] LABS: Vitamin B12 342 pg/mL (211-911)
--- NOTE | 2023-06-05 10:00 | NM_ITS ---
CLINICAL: 47-year-old male with history of chronic nausea. SEMI-SOLID PHASE 99m Tc SULFUR COLLOID GASTRIC EMPTYING STUDY COMPARISON: CT of the abdomen-pelvis report 06/03/2023, MRI of the abdomen, MRCP report 06/05/2023 FINDINGS: The patient was administered 1.1 mCi of 99m Tc sulfur colloid mixed with oatmeal and consumed per os. Image acquisitions in the anterior-posterior projections were obtained for 60 minutes. There is prompt visualization of the stomach. There is no gastroesophageal reflux identified. The T ? raw data emptying was calculated to be 46.59 minutes, (Normal: 12-56 minutes). NM/Gastric Emptying Study IMPRESSION: 1. NORMAL 99m Tc sulfur colloid semi-solid phase (oatmeal) gastric emptying imaging examination. A. There is normal and preserved semi-solid phase gastric emptying compared to normal. (Kaylee et al, J Nucl Med Tech 38: 186, 2010). Electronically Signed: Sebastián Sandoval DO at 14:50 EDT ,
--- NOTE | 2023-06-05 13:05 | CASEMGMT ---
MUM[facility]CTOR Assessment Face to Face with patient for initial transition planning/care coordination assessment. RN CM introduced self and role at [facility], pt voices understanding. Pt is A&Ox4 and is resting comfortably in bed and is calm. Care providers, pharmacy, and demographics verified. Admitting dx: Colitis PCP: No PCP. Provider list given Specialists: Denies Preferred Pharmacy: [facility] Insurance: SP. Pt states that he recently got out of senior living and is going to apply for [employer] once again. Prescription Benefit: None. CM to follow for any expensive medication prescriptions LNOK: Yue Herrera - Ex Living Arrangements: reports that Pt lives alone in a 2 story home with a BM with 2 steps to enter ADLs/IADLs: Ind Transportation: States Friends, family DME: Denies all DME uses or needs HHC/SNF: Denies history or needs Pt?s goal: Home no needs Plan: 6-Click is 24. No therapy ordered. Pt denies the need for HHC or OP therapy. Pt states that he wishes to DC home with no additional needs at time of assessment. CM to follow for safe DC from [facility]. Ez Urban RN, CM
--- NOTE | 2023-06-05 14:47 | DCINST_ITS ---
Discharge Instructions Diet Discharge Diet: No restrictions Activity Discharge Activity: Return to Normal Activity Weight Bearing Status: Full weight bearing Follow Up Care Test Results: Test results from this visit will be discussed in further detail at your follow- up appointment, if applicable. Discharge Plan Admission Admit Date/Time: 06/03/23 12:59 Primary Reason for Your Visit: Nausea and vomiting-possibly secondary to cannabis usage Attending Provider: Ralph Holguin Primary Care Provider: Care Physician,No Primary Consulting Providers: Master Sanchez; David Villar Discharge Orders/Prescriptions Prescriptions: No Action albuterol sulfate [ProAir HFA] 90 mcg/actuation HFA aerosol inhaler 2 inh inhalation Q6H PRN (Reason: shortness of breath or wheezing) Referrals / Follow Up: Care Physician,No Primary [Primary Care Provider] -
--- NOTE | 2023-06-05 14:47 | PCM.DC ---
Discharge Instructions Diet Discharge Diet: No restrictions Activity Discharge Activity: Return to Normal Activity Weight Bearing Status: Full weight bearing Follow Up Care Test Results: Test results from this visit will be discussed in further detail at your follow-up appointment, if applicable. Discharge Plan Admission Admit Date/Time: 06/03/23 12:59 Primary Reason for Your Visit: Nausea and vomiting-possibly secondary to cannabis usage Attending Provider: Ralph Holguin Primary Care Provider: Care Physician,No Primary Consulting Providers: Friend,Master; David Villar Instructions Additional Instructions / Restrictions: Refrain from using marijuana Discharge Orders/Prescriptions Prescriptions: New promethazine 25 mg tablet 25 mg PO Q6H PRN (Reason: nausea and vomiting) Qty: 20 0RF Rx Instructions: 1/2-1 every six hours as needed for nausea hydrocodone-acetaminophen 5-325 mg tablet 1 tab PO Q4H PRN (Reason: pain) 3 Days Qty: 15 0RF Rx Instructions: use for abdominal apin dicyclomine 20 mg tablet 20 mg PO TID Qty: 15 0RF Continued albuterol sulfate [ProAir HFA] 90 mcg/actuation HFA aerosol inhaler 2 inh inhalation Q6H PRN (Reason: shortness of breath or wheezing) Referrals / Follow Up: Nadege Joy [Non-Staff] - See Referral Note (Call to establish as a new patient, you will need an appointment within the next 3 weeks) Care Physician,No Primary [Primary Care Provider] - Disposition Disposition (needs filled in before D/C Order can be placed): Home, Self Care
[2023-06-05] MEDS: oxyCODONE 5 MG Tablet PO (14:50)
[2023-06-05 14:54] VITALS: BP 136/92; PULSE 56; RESP 16; TEMP 36.9; O2SAT 98
--- NOTE | 2023-06-05 14:59 | DS.PCM_ITS ---
Providers Date of Admission: 06/03/23 Date of Discharge: 06/05/23 Primary Care Physician: Jenelle Primary Care Phys Consultations 06/03/23 13:46 Consult: Gastroenterology Routine Consulting Provider: LauraMaster Reason for Consult: h/o pancreatitis w/ pancreas divisum, now w/ acute colitis +/- pancreatitis EMERGENT Consult: No MD Notified: Yes Date Notified: 06/03/23 Time Notified: 14:19 Method of Notification: Text Reason For Visit: COLITIS Diagnosis Discharge Diagnosis (1) Colitis: Status: Acute Code(s): K52.9 - Noninfective gastroenteritis and colitis, unspecified (2) Acute pancreatitis: Status: Acute Code(s): K85.90 - Acute pancreatitis without necrosis or infection, unspecified Plan 1. Abdominal pain secondary to hyperemesis #2 hyperemesis secondary to marijuana usage Colitis was ruled out, pancreatitis was ruled out Medications at Discharge Home Medications albuterol sulfate 90 mcg/actuation aerosol inhaler (ProAir HFA) 2 inh inhalation Q6H PRN shortness of breath or wheezing 06/03/23 dicyclomine 20 mg tablet 20 mg PO TID abdominal cramps #15 tabs 06/05/23 hydrocodone-acetaminophen 5-325mg 5mg-325mg 1 tab PO Q4H PRN pain 3 days #15 tabs 06/05/23 promethazine 25 mg tablet 25 mg PO Q6H PRN nausea and vomiting #20 tabs 06/05/23 Hospital Course Operations None Procedures - (Gastric emptying study, MRCP) Summary of Care Provided Minutes Spent on Discharge: 30 Hospital Course: This 47-year-old white male was seen in the emergency room at [facility] with complaints of abdominal pain which she describes as dull and aching but has a sharp quality at times. He stated the distribution was over the upper abdomen. Patient also complained of vomiting and patient states this improves his abdominal pain. Workup in the emergency room included a normal CBC, patient's chemistry profile was unremarkable, patient's lipase was elevated at 476. CT of the abdomen and pelvis revealed diffuse thickening of the colon extending from the cecum to the rectum concerning for colitis. There was noted to be fatty liver. Patient was given IV fluids, morphine, and Zofran and in addition was given a dose of Bentyl. Patient was admitted to MedSurg 3 and seen in consultation by gastroenterology, gastroenterology noted that the patient had no blood in his stool and did not feel the patient had colitis. Patient received some IV antibiotics during his hospitalization for presumed colitis. Patient underwent an MRCP which showed no evidence of pancreatitis or other abnormality, and the patient had a gastric emptying study which was unremarkable. Gastroenterology felt that the patient's vomiting could be secondary to marijuana usage and his abdominal pain could be secondary to multiple episodes of vomiting. On 06/05/2023, patient was seen and examined: On examination he appeared in good health and spirits. Vital signs as documented. Skin warm and dry and without overt rashes. Neck without JVD, neck was supple, trachea midline, thyroid was normal. Lungs clear bilaterally, normal air movement was noted. Heart exam notable for regular rhythm, normal sounds and absence of murmurs, rubs or gallops. Abdomen unremarkable and without evidence of organomegaly, masses, or abdominal aortic enlargement. Bowel sounds are present, abdomen is not distended. Extremities nonedematous, no cyanosis was noted, no clubbing was noted. Neuro: Cranial nerves II through XII are grossly intact, no focal motor deficits were noted, sensation to light touch and pinprick intact, motor exam 5/5 throughout. Psych: Patient is alert and oriented x3, he does not appear anxious or depressed, he does not appear agitated. Patient appears stable for discharge home on 06/05/2023. Weight / BMI Weight Weight: 117.48 kg Body Mass Index (BMI) 34.2 ABG / Lab / Microbiology Data 06/05/23 05:45 06/05/23 05:45 Laboratory: Laboratory Results - last 24 hr 06/03/23 16:50: Vitamin B12 342 06/04/23 02:50: Urine Color Yellow, Urine Clarity Clear, Urine pH 8.0, Ur Specific [place] 1.015, Urine Protein 30 H, Urine Glucose (UA) Normal, Urine Ketones 50 H, Urine Occult Blood 50 H, Urine Nitrite Negative, Urine Bilirubin Negative, Urine Urobilinogen Normal, Ur Leukocyte Esterase 25 H, Urine RBC 0-5 SEEN, Urine WBC 5-10 SEEN, Ur Squamous Epith Cells 0-5 SEEN, Urine Bacteria 0 SEEN, Urine Mucus 0 SEEN 06/05/23 05:45: WBC 6.1, RBC 4.59 L, Hgb 13.7, Hct 41.8, MCV 91.1, MCH 29.8, MCHC 32.8, RDW Std Deviation 44.2 H, RDW Coeff of Sulema 13.2, Plt Count 227, MPV 11.7, Sodium 140, Potassium 3.6, Chloride 109 H, Carbon Dioxide 27.0, Anion Gap 4 L, BUN 14, Creatinine 1.17, Estim Creat Clear Calc 107.06, Est GFR (MDRD) Af Amer 86, Est GFR (MDRD) Non-Af 71, BUN/Creatinine Ratio 12.0, Glucose 93, Calcium 8.5 Radiography Diagnostic Testing: Radiology Impression MRCP 06/05/23 06:00 IMPRESSION: 1. Normal MR Cholangiopancreatography (MRCP). Electronically Signed: Mike Hernandez MD at 9:47 EDT , Gastric Emptying Nuclear Medicine 06/05/23 10:00 IMPRESSION: 1. NORMAL 99m Tc sulfur colloid semi-solid phase (oatmeal) gastric emptying imaging examination. A. There is normal and preserved semi-solid phase gastric emptying compared to normal. (Kaylee et al, J Nucl Med Tech 38: 186, 2010). Electronically Signed: Sebastián Sandoval DO at 14:50 EDT , D/C Instructions Discharge Diet: No restrictions Weight Bearing Status: Full weight bearing Meaningful Use Info Meaningful Use Diagnoses (Choose all that apply): None applicable Discharge Plan Admission Admit Date/Time: 06/03/23 12:59 Primary Reason for Your Visit: Nausea and vomiting-possibly secondary to cannab is usage Attending Provider: Ralph Holguin Primary Care Provider: Care Physician,No Primary Consulting Providers: Friend,Master; David Villar Instructions Additional Instructions / Restrictions: Refrain from using marijuana Discharge Orders/Prescriptions Prescriptions: New promethazine 25 mg tablet 25 mg PO Q6H PRN (Reason: nausea and vomiting) Qty: 20 0RF Rx Instructions: 1/2-1 every six hours as needed for nausea hydrocodone-acetaminophen 5-325 mg tablet 1 tab PO Q4H PRN (Reason: pain) 3 Days Qty: 15 0RF Rx Instructions: use for abdominal apin dicyclomine 20 mg tablet 20 mg PO TID Qty: 15 0RF Continued albuterol sulfate [ProAir HFA] 90 mcg/actuation HFA aerosol inhaler 2 inh inhalation Q6H PRN (Reason: shortness of breath or wheezing) Referrals / Follow Up: Nadege Joy [Non-Staff] - See Referral Note (Call to establish as a new patient, you will need an appointment within the next 3 weeks) Care Physician,No Primary [Primary Care Provider] - Disposition Disposition (needs filled in before D/C Order can be placed): Home, Self Care Charges/Coding Visit Charges Inpatient E&M: 69423 Disch Hosp
[2023-06-07 14:09] LABS: ACCA 13 units (0-90); ALCA 13 units (0-60); AMCA 3 units (0-100); Albumin 3.8 g/dL (2.9-4.4); Alpha-1-Globulins 0.2 g/dL (0.0-0.4); Alpha-2-Globulins 0.7 g/dL (0.4-1.0); Anti-Parietal Cell AB, QN 1.7 Units (0.0-20.0); Cytoplasmic Ab (C-ANCA) <1:20 titer (Neg:<1:20); Deamidated Gliadin IgA 4 units (0-19); Deamidated Gliadin IgG 3 units (0-19); Endomysial Antibody IgA Negative (Negative); Gamma Globulin 0.7 g/dL (0.4-1.8); Gastrin, Serum 31 pg/mL (0-115); IgG, Quant 802 mg/dL (603-1613); Immunoglobulin A 226 mg/dL (90-386); Immunoglobulin G, Subclass 1 482 mg/dL (248-810); Immunoglobulin G, Subclass 2 231 mg/dL (130-555); Immunoglobulin G, Subclass 3 35 mg/dL (15-102); Immunoglobulin G, Subclass 4 29 mg/dL (2-96); Immunoglobulin M 44 mg/dL (20-172); PROEL- TOTAL PROTEIN 6.6 g/dL (6.0-8.5); Perinuclear Ab (P-ANCA) <1:20 titer (Neg:<1:20); gASCA 12 units (0-50); t-Transglutaminase IgA <2 U/mL (0-3)
[2023-06-09 12:09] LABS: Anti-Centromere B Ab <0.2 AI (0.0-0.9); Anti-Chromatin <0.2 AI (0.0-0.9); Anti-Jo <0.2 AI (0.0-0.9); Anti-Scleroderma-70 AB <0.2 AI (0.0-0.9); Anti-dsDNA Ab <1 IU/mL (0-9); Beef <0.10 kU/L (Class 0); Chocolate <0.10 kU/L (Class 0); Codfish <0.10 kU/L (Class 0); Corn <0.10 kU/L (Class 0); Egg, Whole <0.10 kU/L (Class 0); Milk (Cow) <0.10 kU/L (Class 0); Peanut <0.10 kU/L (Class 0); Pork <0.10 kU/L (Class 0); RNP Ab <0.2 AI (0.0-0.9); SJOGREN'S Anti-SS-A test < 0.2 AI (0.0-0.9); SJOGREN'S Anti-SS-B test < 0.2 AI (0.0-0.9); Salmon <0.10 kU/L (Class 0); Smith Ab <0.2 AI (0.0-0.9); Soybean <0.10 kU/L (Class 0); Tuna <0.10 kU/L (Class 0); Wheat <0.10 kU/L (Class 0)
== END 2023-06-05 15:31 | disposition home or self-care (01) | DRG 249 ==
LOC: ED 13:01 → MS3 06-05 07:38
PROVIDERS: Internal Medicine Gastroenterology; Admitting Provider Hospitalist; Emergency Provider Emergency Medicine; Visit Provider Internal Medicine
DX: R11.2 Nausea with vomiting, unspecified (principal); F12.20 Cannabis dependence, uncomplicated; E66.9 Obesity, unspecified; K76.0 Fatty (change of) liver, not elsewhere classified; I10 Essential (primary) hypertension; F17.290 Nicotine dependence, other tobacco product, uncomplicated; Z68.34 Body mass index [BMI] 34.0-34.9, adult
CPT/HCPCS: G0378 ×2; G0463; 36415; 74177; 74181; 78264; 80048; 80053; 80061; 80307; 81001; 82077; 82607; 82784; 82787; 82941; 83036; 83516; 83690; 84165; 85025; 85027; 85652; 86003; 86005; 86036; 86140; 86225; 86235; 86255; 86256; 86334; 86340; 86671; 94668; 96361; 96365; 96366; 96367; 96372; 96375; 96376; 97802; 99221; 99252; 99284; A9541; J7030; J7120; Q9967; A4216; J0744; J2405

== ENCOUNTER 2023-06-21 09:04 | Observation (INO) | payer MEDICAID, SELFPAY ==
[2023-06-21] VITALS (10 sets, daily range): BP systolic 116–176; BP diastolic 64–113; PULSE 55–97; RESP 14–18; TEMP 36.4–36.9; O2SAT 97–100; BMI 23.4; BMI 33.7
--- NOTE | 2023-06-21 09:19 | EX.ED.DYSGE1 ---
HPI History of Present Illness Chief Complaint: Abd Pain Informant: patient Onset/Context/Timing Onset: Today Narrative Narrative: Patient presents secondary to abdominal pain. He states symptoms started this morning with nausea and vomiting. Patient was admitted to the hospital June 02 through the with pancreatitis and colitis. He had an MRCP and a gastric emptying study that were unremarkable. Patient states he had been doing well until this morning. He did have some of his medication left from discharge and tried that this morning, but believes he vomited it up. [facility] Medical History Acute pancreatitis Colitis Diverticulitis HTN (hypertension) Intestinal ulcer Marijuana dependence Marijuana smoker Pancreatitis Personality disorder Home Medications albuterol sulfate 90 mcg/actuation aerosol inhaler (ProAir HFA) 2 inh inhalation Q6H PRN shortness of breath or wheezing 06/03/23 [History Last Taken 06/03/23] dicyclomine 20 mg tablet 20 mg PO TID abdominal cramps #15 tabs 06/05/23 [Rx Last Taken Unknown] hydrocodone-acetaminophen 5-325mg 5mg-325mg 1 tab PO Q4H PRN pain 3 days #15 tabs 06/05/23 [Rx Last Taken Unknown] promethazine 25 mg tablet 25 mg PO Q6H PRN nausea and vomiting #20 tabs 06/05/23 [Rx Last Taken Unknown] Allergy/AdvReac Type Severity Reaction Status Date / Time No Known Allergies Allergy Verified 06/21/23 09:44 Social History Smoking Status: Former smoker ROS ROS ED Constitutional Constitutional ED: Denies chills or fever(s) Eyes Eyes: Denies change in vision ENT ENT ED: Denies rhinorrhea or sore throat Cardiovascular Cardiovascular: Denies chest pain or palpitations Respiratory/Chest Respiratory/Chest: Denies cough or dyspnea Gastrointestinal Gastrointestinal: Reports abdominal pain, nausea and vomiting; Denies diarrhea Genitourinary Genitourinary ED: Denies dysuria Musculoskeletal Musculoskeletal: Denies back pain or extremity pain Integumentary Denies Abrasions or rash Neurologic Neurologic: Denies headache(s) or weakness Allergic/Immunologic Allergic/Immunologic ED: Denies lip swelling or urticaria EXAM Physical Exam Const Vital Signs: 06/21/23 09:05 Temperature 98.1 F Temperature Source Oral Pulse Rate 62 Respiratory Rate 18 Blood Pressure 176/113 H Blood Pressure Mean 134 Pulse Ox 100 Oxygen Delivery Method Room Air Positive well nourished and well developed General Appearance ED: well developed HEENT Reports moist mucous membranes Eyes EOMs intact bilaterally Chest Wall inspection of chest normal and palpation of chest normal Resp normal respiratory effort and clear to auscultation bilaterally Cardio regular rate and regular rhythm GI GI Narrative: Abdomen soft with diffuse tenderness palpation, worse in the epigastrium. No guarding or rebound. Hypoactive bowel sounds. Extremity normal to inspection Neuro oriented x3 and no sensory deficits noted Motor Exam: strength 5/5 throughout Psych mental status grossly normal Skin no rashes or lesions noted MDM MDM MDM Narrative Medical decision making narrative: Patient's recent admission was reviewed. IV line established. Patient given IV fluids, morphine, Reglan, Benadryl. Labwork obtained to evaluate for leukocytosis, anemia, and electrolyte derangement. Lab Data Labs: Laboratory Results - last 24 hr 06/21/23 09:25 WBC 9.1 RBC 5.19 Hgb 15.4 Hct 46.3 MCV 89.2 MCH 29.7 MCHC 33.3 RDW Std Deviation 44.8 H RDW Coeff of Sulema 13.7 Plt Count 265 MPV 11.1 Immature Gran % (Auto) 0.400 Neut % (Auto) 70.0 Lymph % (Auto) 16.4 L Harvey % (Auto) 8.1 Eos % (Auto) 3.7 Baso % (Auto) 1.4 H Absolute Neuts (auto) 6.4 Absolute Lymphs (auto) 1.49 Nucleated RBC % 0 Sodium 139 Potassium 4.0 Chloride 111 H Carbon Dioxide 24.0 Anion Gap 4 L BUN 10 Creatinine 1.15 Estim Creat Clear Calc 91.67 Est GFR (MDRD) Af Amer 88 Est GFR (MDRD) Non-Af 73 BUN/Creatinine Ratio 8.7 L Glucose 107 H Calcium 9.2 Total Bilirubin 0.40 Direct Bilirubin 0.10 AST 19 ALT 27 Alkaline Phosphatase 56 Total Protein 7.6 Albumin 4.1 Globulin 3.5 Lipase 478 H Treatment and Re-Evaluation :: CBC reveals normal white count 9.1 with a hemoglobin of 15.4. 70% neutrophils noted. Chemistry studies are largely unremarkable. LFTs are normal but lipase is again elevated at 478. On repeat evaluation patient reports some improvement in his pain and nausea, however symptoms are persisting. Patient given another round of analgesics and antiemetics. I will speak with hospitalist regarding admission. Discharge Plan Triage Chief Complaint: Abd Pain ED Provider: Lis Lloyd Dx/Rx/DC Orders Clinical Impression: Pancreatitis Prescriptions: No Action albuterol sulfate [ProAir HFA] 90 mcg/actuation HFA aerosol inhaler 2 inh inhalation Q6H PRN (Reason: shortness of breath or wheezing) promethazine 25 mg tablet 25 mg PO Q6H PRN (Reason: nausea and vomiting) Qty: 20 0RF Rx Instructions: 1/2-1 every six hours as needed for nausea hydrocodone-acetaminophen 5-325 mg tablet 1 tab PO Q4H PRN (Reason: pain) 3 Days Qty: 15 0RF Rx Instructions: use for abdominal apin dicyclomine 20 mg tablet 20 mg PO TID Qty: 15 0RF Primary Care Provider: Care Physician,No Primary Referrals: Care Physician,No Primary [Primary Care Provider] - Disposition Disposition: Acute Care Hospital [facility]
[2023-06-21] MEDS: Metoclopramide 10 MG/2 ML Vial IV (09:33)
[2023-06-21] MEDS: 0.9% Normal Saline (1000mL) 1,000 ML 1000 ML IV (09:33)
[2023-06-21] MEDS: DiphenhydrAMINE 50 MG/ML Syringe 12.5 MG IV (09:35)
[2023-06-21] MEDS: Morphine 4 MG/ML Syringe IV (09:36)
[2023-06-21 09:51] LABS: Absolute Lymphocyte Count 1.49 X10^3/uL (0.83-4.51); Absolute Neutrophil Count 6.4 X10^3/uL (2.0-7.7); Basophil# 0.13 X10^3/uL; Basophil% 1.4 % (0-1); Eosinophil# 0.34 X10^3/uL; Eosinophils% 3.7 % (0-5); Hematocrit 46.3 % (40-54); Hemoglobin 15.4 g/dL (13.0-16.5); Lymphocyte # 1.49 X10^3/ul (0.83-4.51); Lymphocyte % 16.4 % (19-41); Mean Corp Hgb Conc 33.3 g/dL (32-36); Mean Corpuscular Hgb 29.7 pg (27.0-32.0); Mean Corpuscular Volume 89.2 fL (80-94); Mean Platelet Vol. 11.1 fl (6.2-12.0); Monocyte# 0.74 X10^3/uL; Monocyte% 8.1 % (0-10); NRBC Flagged by Analyzer 0 % (0-5); Neutrophil # 6.35 X10^3/uL (2.7-7.7); Platelet Count 265 K/mm3 (150-450); RBC Distribution Width CV 13.7 % (11.6-14.6); RBC Distribution Width SD 44.8 fl (35.1-43.9); Red Blood Count 5.19 M/mm3 (4.6-6.2); White Blood Count 9.1 K/mm3 (4.4-11.0)
[2023-06-21 10:13] LABS: AST(SGOT) 19 U/L (15-37); Alanine Aminotransfer ALT/SGPT 27 U/L (16-61); Albumin, Serum 4.1 g/dL (3.2-5.0); Alkaline Phosphatase 56 U/L (45-117); Anion Gap 4 (5-15); BUN 10 mg/dL (7-18); BUN/Creat Ratio 8.7 RATIO (10-20); Calcium,Total 9.2 mg/dL (8.5-10.1); Chloride 111 mmol/L (98-107); Creatinine, Serum 1.15 mg/dL (0.70-1.30); EST Glomerular Filtration Rate 73 mL/min (>60); Est Glom Filt Rate - Afr Amer 88 mL/min (>60); Estimated Creatinine Clearance 91.67 ml/min; Globulin 3.5 g/dL (2.2-4.2); Glucose 107 mg/dL (74-106); Lipase 478 U/L (13-75); Protein, Total 7.6 g/dL (6.4-8.2); Sodium Level 139 mmol/L (136-145)
[2023-06-21] MEDS: HYDROmorphone 0.5 MG/0.5 ML SYRINGE IV (10:50)
[2023-06-21] MEDS: proMETHazine 25 MG/ML Syringe 12.5 MG IM (10:51)
--- NOTE | 2023-06-21 10:56 | NURSING ---
MED SURG TERELETSKY PANCREATITIS
[2023-06-21] MEDS: HYDROmorphone 1 MG/ML Syringe IV ×2 (13:00→21:17)
[2023-06-21] MEDS: 0.9% Normal Saline (1000mL) 1,000 ML 150 ML IV ×2 (13:12→18:03)
--- NOTE | 2023-06-21 17:31 | EX.PCM.CON.G ---
HPI Consult Data Date of Consult: 06/21/23 HPI Narrative Reason for Consultation: Nausea vomiting HPI Narrative: RADHA WILKES, is a 47 M who presents secondary to abdominal pain. He states symptoms started this morning with nausea and vomiting. Patient was admitted to the hospital June 02 through the with pancreatitis and colitis. He had an MRCP and a gastric emptying study that were unremarkable. Patient states he had been doing well until this morning. He did have some of his medication left from discharge and tried that this morning, but believes he vomited it up. He said that his abdominal pain that began this morning. Patient states it began rather suddenly this morning when he woke up. Patient states the pain is constant. Patient describes the pain as dull and aching but sharp at times. Patient states the pain is over the upper abdomen. Patient states it gets better after he vomits. Patient states nothing makes it worse. Patient denies any hematemesis or coffee-ground emesis. Patient denies any diarrhea, melena, or hematochezia. Patient denies any urinary complaints. He had a similar presentation where he presented to the hospital approximately 12 years ago and was seen by Dr. Garza who is a local retread supervisor at that time. He has been intermittently here to the hospital for worsening abdominal pain and was discovered to have a hyper lipase anemia without imaging confirming pancreatitis. Previous CT scan abdomen pelvis displays: 1. Diffuse thickening of the colon extending from the cecum to the rectum concerning for colitis. Under distention is possible. 2. Hepatic steatosis. 3. Small hiatal hernia. [facility] Medical History Acute pancreatitis Colitis Diverticulitis HTN (hypertension) Intestinal ulcer Marijuana dependence Marijuana smoker Pancreatitis Personality disorder Home Medications albuterol sulfate 90 mcg/actuation aerosol inhaler (ProAir HFA) 2 inh inhalation Q6H PRN shortness of breath or wheezing 06/03/23 [History Last Taken 06/03/23] dicyclomine 20 mg tablet 20 mg PO TID abdominal cramps #15 tabs 06/05/23 [Rx Last Taken 06/21/23] hydrocodone-acetaminophen 5-325mg 5mg-325mg 1 tab PO Q4H PRN pain 3 days #15 tabs 06/05/23 [Rx Last Taken 06/21/23] promethazine 25 mg tablet 25 mg PO Q6H PRN nausea and vomiting #20 tabs 06/05/23 [Rx Last Taken 06/21/23] Allergy/AdvReac Type Severity Reaction Status Date / Time No Known Allergies Allergy Verified 06/21/23 09:44 Social History Smoking Status: Former smoker ROS Review of Systems ROS Unobtainable: other Constitutional Constitutional: Denies fatigue, fever(s), poor appetite, weight gain or weight loss ENT HEENT: Denies mouth lesions Cardiovascular Cardiovascular: Denies abdominal bloating, abdominal edema or abdominal pain Respiratory/Chest Respiratory/Chest: Denies change in mental status, change in phlegm color, chest congestion or chest tightness Gastrointestinal Gastrointestinal: Denies belching, bloating, change in bowel habits, change in stool character, chewing difficulty, coffee ground emesis, constipation, cramping, diarrhea, dyspepsia, dysphagia, early satiety, excessive flatus, fecal incontinence, heartburn, hematemesis, hematochezia, hemorrhoids, loose stools, melena, nausea, odynophagia, rectal bleeding, tenesmus, vomiting or weight changes Genitourinary Genitourinary: Denies abdominal discomfort, burning urination or itching Musculoskeletal Musculoskeletal: Reports as per HPI; Denies muscle weakness or myalgias Integumentary Integumentary: Denies jaundice Neurologic Neurologic: Denies lack of coordination or weakness Psychiatric Psychiatric: Denies confusion, depression, memory loss, mood swings, paranoia or suicidal ideation Endocrine Endocrinology: Denies systems reviewed and no addt'l complaints, except as documented Hematologic/Lymphatic Hematologic/Lymphatic: Denies anemia, easy bleeding, easy bruising or lymphadenopathy Allergic/Immunologic Allergic/Immunologic: Denies systems reviewed and no addt'l complaints, except as documented Physical Exam Const alert and oriented x3 Constitutional Narrative: Middle aged male, obese, appears much improved from admission, sitting up comfortably in bed, conversing normally, in no acute distress. General Appearance: cooperative HEENT normocephalic, head/scalp atraumatic, hearing grossly normal bilaterally and nasal mucous membranes and turbinates normal Eyes PERRL, EOMs intact bilaterally and conjunctivae normal Neck full ROM Chest inspection of chest normal Resp normal respiratory effort, normal air movement, no use of accessory muscles and clear to auscultation bilaterally Cardio regular rate, regular rhythm, no murmurs and peripheral pulses 2+ throughout GI GI Narrative: Very mild tenderness to palpation in epigastric area. No tenderness in mid to lower abdomen on palpation. Abdomen soft and nondistended, no guarding or rebound tenderness noted. Back/Spine normal ROM Extremity normal to inspection, full ROM and no pedal edema Skin no rashes or lesions noted Neuro moves all extremities and no focal motor deficits Speech: speech normal Psych mental status grossly normal Lab / Micro Data 06/21/23 09:25 06/21/23 09:25 Labs: Laboratory Results - last 24 hr 06/21/23 09:25: WBC 9.1, RBC 5.19, Hgb 15.4, Hct 46.3, MCV 89.2, MCH 29.7, MCHC 33.3, RDW Std Deviation 44.8 H, RDW Coeff of Sulema 13.7, Plt Count 265, MPV 11.1, Immature Gran % (Auto) 0.400, Neut % (Auto) 70.0, Lymph % (Auto) 16.4 L, [place] % (Auto) 8.1, Eos % (Auto) 3.7, Baso % (Auto) 1.4 H, Absolute Neuts (auto) 6.4, Absolute Lymphs (auto) 1.49, Nucleated RBC % 0, Sodium 139, Potassium 4.0, Chloride 111 H, Carbon Dioxide 24.0, Anion Gap 4 L, BUN 10, Creatinine 1.15, Estim Creat Clear Calc 91.67, Est GFR (MDRD) Af Amer 88, Est GFR (MDRD) Non-Af 73, BUN/Creatinine Ratio 8.7 L, Glucose 107 H, Calcium 9.2, Total Bilirubin 0.40, Direct Bilirubin 0.10, AST 19, ALT 27, Alkaline Phosphatase 56, Total Protein 7.6, Albumin 4.1, Globulin 3.5, Lipase 478 H Assessment & Plan Assessment/Plan (1) Colitis: (2) Acute pancreatitis: PLAN: Plan Patient is a 47 M who presented to [facility] ED on 06/03/2023 with worsening abdominal pain. 1. Intractable nausea/vomiting with abdominal pain, concern for recurrent pancreatitis, concern for colitis of unclear etiology CTAP w/ IV contrast on admit showed diffuse thickening of colon extending from cecum to rectum concerning for colitis, as well as hepatic steatosis, normal pancreas, no other concerning findings. Lipase 476. His lipase goes up and down. His labs otherwise benign. Afebrile, hemodynamically stable on room air. ? Differential dx for colitis is broad , but I suspect it is secondary to ischemic colitis just from cramping. He does not have any lower GI symptoms. He completed a course of antibiotics. He could have possible gastritis or duodenitis. We will perform an upper endoscopy to evaluate his upper GI tract. He was explained alternatives, risk, benefits including outstanding bleeding, infection, sepsis, perforation, need for emergent surgery . He will have an ASA of 3. 2. Marijuana use, concern for cyclic vomiting syndrome ? Patient reports smoking marijuana daily over past few years. Did report an intermittent pattern of vomiting and nausea w/ BM's, w/ hot showers helping to relieve his nausea. Encouraged cessation. 3. Obesity ? BMI 34 on admit. Encouraged lifestyle modifications. Complicates hospital course, care and prognosis. Charges/Coding Visit Charges Inpatient E&M: 09397 Init Hosp L3
--- NOTE | 2023-06-21 18:00 | IMM_PTH ---
PATIENT: RADHA WILKES LOC: [facility] U#:[id number] AGE/SX: 47/M ROOM: [facility] RE06/21/[address]: Dr. Ralph Holguin, : 1975 BED: 1 DIS: 06/22/2023 SPEC #: [id number] RECD: 06/22/23 13:29 STATUS: SOUT REQ #: [id number] KARRI: 06/21/23 18:[address]: Master Sanchez DEPT: IMMUNOHISTOCHEMISTRY RECD BY: Yovany Byrd ENTERED: 06/22/23 13:30 SP TYPE: IMMUNO OTHR DR: Dr. Ralph Holguin, DO No Primary Care Phys Tissues: B - Stomach, NOS Procedures: H Pylori (initial) Comments: @ Ordering doctor for H.PYLORI edited from to @ by BASILIA at 06/22/23 1331 @ Submitting doctor edited from to @ by BASILIA at 06/22/231 PHYSICIAN & [place] [phone] SPECIMEN INFORMATION: Tissue Source: Gastric body biopsy Clinical Info: Colitis, acute pancreatitis Specimen Number: [id number] CPT code: 29929 METHODOLOGY: Deparaffinized sections of prefer/formalin-fixed tissue or PAP/DQ stained slides are incubated with monoclonal/polyclonal antibodies/oligonucleotide probes. Localization is made via biotin free immunoperoxidase method. Appropriate controls are performed and reacted as expected. Results on target cell population are indicated in the following table: RESULTS: ANTIBODY / CLONE RESULT Block B H Pylori (polyclonal) negative These tests were developed and their performance characteristics determined by [facility]. They may not have been cleared or approved by the U.S. Food and Drug Administration. The FDA has determined that such clearance or approval is not necessary. The above immunohistochemical/dualISH markers are ordered and reviewed by the Pathologist. INTERPRETATION: B. Gastric body, biopsy: Negative for Helicobacter pylori organisms. STIVEN/ 06/23/2023
--- NOTE | 2023-06-21 18:00 | OP.EGD_ITS ---
Patient Name: Sergo Whitfield Procedure Date: 06/21/2023 5:29 PM Date of : 1975 Age: 47 Procedure: Upper GI endoscopy Indications: Epigastric abdominal pain, Suspected esophageal reflux Providers: Master Sanchez DO Medicines: Monitored Anesthesia Care Patient Profile: This is a 47 year old male. Refer to note in patient chart for documentation of history and physical. Patient has symptoms of acute vomiting. Complications: No immediate complications. Procedure: Pre-Anesthesia Assessment: - Prior to the procedure, a History and Physical was performed, and patient medications and allergies were reviewed. The patient is competent. The risks and benefits of the procedure and the sedation options and risks were discussed with the patient. All questions were answered and informed consent was obtained. Patient identification and proposed procedure were verified by the physician in the pre-procedure area. Mental Status Examination: alert and oriented. Airway Examination: normal oropharyngeal airway and neck mobility. Respiratory Examination: clear to auscultation. CV Examination: normal. Prophylactic Antibiotics: The patient does not require prophylactic antibiotics. Prior Anticoagulants: The patient has taken no anticoagulant or antiplatelet agents. ASA Grade Assessment: II - A patient with mild systemic disease. After reviewing the risks and benefits, the patient was deemed in satisfactory condition to undergo the procedure. The anesthesia plan was to use monitored anesthesia care (MAC). Immediately prior to administration of medications, the patient was re-assessed for adequacy to receive sedatives. The heart rate, respiratory rate, oxygen saturations, blood pressure, adequacy of pulmonary ventilation, and response to care were monitored throughout the procedure. The physical status of the patient was re-assessed after the procedure. After obtaining informed consent, the endoscope was passed under direct vision. Throughout the procedure, the patient's blood pressure, pulse, and oxygen saturations were monitored continuously. The Endoscope was introduced through the mouth, and advanced to the second part of duodenum. The upper GI endoscopy was accomplished without difficulty. The patient tolerated the procedure well. Scope In: 5:43:55 PM Scope Out: 5:49:50 PM Total Procedure Duration Time 0 hours 5 minutes 55 seconds Findings: LA Grade D (one or more mucosal breaks involving at least 75% of esophageal circumference) esophagitis with no bleeding was found 34 to 40 cm from the incisors. Bilious fluid was found in the stomach. Fluid aspiration was performed. Segmental moderate inflammation characterized by erosions and erythema was found in the duodenal bulb and in the first portion of the duodenum. Biopsies were taken with a cold forceps for histology. Verification of patient identification for the specimen was done. Estimated blood loss was minimal. Impression: - LA Grade D erosive esophagitis with no bleeding. - Bilious gastric fluid. Fluid aspiration performed. - Bile duodenitis. Biopsied. Recommendation: - [facility] care. - Resume previous diet today. - Continue present medications. - Await pathology results. - Buspirone 5mg TID Procedure Code(s): --- Professional --- 33954, Esophagogastroduodenoscopy, flexible, transoral; with biopsy, single or multiple CPT copyright 2021 [employer]. All rights reserved. The codes documented in this report are preliminary and upon faucets assembler review may be revised to meet current compliance requirements. Master Sanchez DO 06/21/2023 6:00:09 PM This report has been signed electronically. Number of Addenda: 0 Note Initiated On: 06/21/2023 5:29 PM
--- NOTE | 2023-06-21 18:00 | OP.CCLET_ITS ---
06/21/2023 No Primary Care Physician Re : Upper GI endoscopy procedure for Sergo Whitfield Dear Care Physician This procedure was performed on Wednesday, June 21, 2023. My impressions and recommendations are as follows: Impressions : - LA Grade D erosive esophagitis with no bleeding. - Bilious gastric fluid. Fluid aspiration performed. - Bile duodenitis. Biopsied. Recommendations : - Return patient to [facility] for ongoing care. - Resume previous diet today. - Continue present medications. - Await pathology results. - Buspirone 5mg TID My findings are described in the full procedure note, which is enclosed. If I can be of further assistance, please feel free to contact me at . Sincerely, Master Sanchez, 06/21/2023 6:00:09 PM This report has been signed electronically.
--- NOTE | 2023-06-21 19:11 | PCM.HP.STD ---
HPI - General General Date of Admission: 06/21/23 Date of Service: 06/21/23 Chief Complaint: Abdominal pain HPI Narrative RADHA WILKES, is a 47 M who presents to the emergency room with nausea, vomiting, and generalized abdominal pain x 24 hours. Patient was previously in the hospital earlier this month here and underwent an MRCP and a gastric emptying study which was unremarkable. Patient denies any diarrhea or blood in the stool. Workup in the emergency room reveals a normal CBC, chemistry panel was unremarkable and patient's lipase was elevated at 478. No imaging studies were obtained by the emergency room. Patient will be admitted for acute pancreatitis, I talked informally with gastroenterology, he will undergo an EGD today to rule out any peptic ulcer disease. Patient denies he is currently smoking any marijuana. [facility] Medical History Acute pancreatitis Colitis Diverticulitis HTN (hypertension) Intestinal ulcer Marijuana dependence Marijuana smoker Pancreatitis Personality disorder Home Medications albuterol sulfate 90 mcg/actuation aerosol inhaler (ProAir HFA) 2 inh inhalation Q6H PRN shortness of breath or wheezing 06/03/23 [History Last Taken 06/03/23] dicyclomine 20 mg tablet 20 mg PO TID abdominal cramps #15 tabs 06/05/23 [Rx Last Taken 06/21/23] hydrocodone-acetaminophen 5-325mg 5mg-325mg 1 tab PO Q4H PRN pain 3 days #15 tabs 06/05/23 [Rx Last Taken 06/21/23] promethazine 25 mg tablet 25 mg PO Q6H PRN nausea and vomiting #20 tabs 06/05/23 [Rx Last Taken 06/21/23] Allergy/AdvReac Type Severity Reaction Status Date / Time No Known Allergies Allergy Verified 06/21/23 09:44 Social History Smoking Status: Former smoker ROS Constitutional Constitutional: Denies anorexia, change in weight, chills, fatigue, fever(s), malaise, night sweats or weakness Eyes Eyes: Denies blurry vision, change in vision, discharge from eye(s) or eye pain Cardiovascular Cardiovascular: Denies chest pain, claudication, edema or palpitations Respiratory/Chest Respiratory/Chest: Denies cough, hemoptysis, shortness of breath at rest or shortness of breath with exertion Gastrointestinal Gastrointestinal: Reports abdominal pain, nausea and vomiting; Denies constipation, diarrhea, hematemesis, hematochezia or melena Genitourinary Genitourinary: Denies difficulty urinating, dysuria, hematuria, urinary frequency, urinary hesitancy, urinary incontinence or urinary urgency Musculoskeletal Musculoskeletal: Denies back pain, joint pain, joint stiffness, joint swelling, myalgias or neck pain Neurologic Neurologic: Denies abnormal gait, abnormal speech, dizziness, focal weakness, headache(s), loss of vision, numbness, other visual disturbances, paresthesias, syncope or tingling Psychiatric Psychiatric: Denies anxiety, cognitive impairment, depression, irritability, mood swings or suicidal ideation Endocrine Endocrinology: Denies change in body appearance, cold intolerance, excessive sweating, heat intolerance, polydipsia or polyuria Hematologic/Lymphatic Hematologic/Lymphatic: Denies none, anemia, easy bleeding, easy bruising or lymphadenopathy Allergic/Immunologic Allergic/Immunologic: Denies rhinitis, urticaria, eczemia or asthma Vital Signs Vital Signs Vital Signs: 06/21/23 09:05 06/21/23 10:59 06/21/23 11:04 Temperature 98.1 F 98.2 F 98.1 F Temperature Source Oral Oral Pulse Rate 62 79 71 Respiratory Rate 18 16 15 Respiratory Pattern Blood Pressure 176/113 H 131/84 H 127/64 H Blood Pressure Mean 134 99 85 Blood Pressure Source Blood Pressure Position Blood Pressure Location Baseline BP Pulse Ox 100 97 98 Oxygen Delivery Method Room Air Room Air 06/21/23 12:34 06/21/23 18:30 06/21/23 17:57 Temperature 97.5 F L 98.0 F 98.4 F Temperature Source Temporal Oral Temporal Pulse Rate 55 L 55 L 83 Respiratory Rate 16 16 16 Respiratory Pattern Normal Blood Pressure 154/102 H 150/91 H 157/100 H Blood Pressure Mean 119 110 119 Blood Pressure Source Monitor Monitor Monitor Blood Pressure Position Sitting Sitting Semi-Fowlers Blood Pressure Location Right Arm Right Arm Right Arm Baseline BP 154/102 Pulse Ox 100 99 97 Oxygen Delivery Method Room Air Room Air Room Air 06/21/23 18:02 06/21/23 18:07 06/21/23 18:10 Temperature 98.3 F Temperature Source Temporal Pulse Rate 63 68 59 L Respiratory Rate 16 16 16 Respiratory Pattern Blood Pressure 136/96 H 155/99 H 156/98 H Blood Pressure Mean 109 117 117 Blood Pressure Source Monitor Monitor Monitor Blood Pressure Position Semi-Fowlers Semi-Fowlers Semi-Fowlers Blood Pressure Location Right Arm Right Arm Right Arm Baseline BP 154/102 154/102 154/102 Pulse Ox 97 98 97 Oxygen Delivery Method Room Air Room Air Room Air Weight Weight: 116 kg Body Mass Index (BMI) 33.7 Physical Exam Const alert, oriented x3, no apparent distress and average body habitus Constitutional Narrative: Patient appears in moderate distress due to nausea and vomiting General Appearance: cooperative, well kempt and well developed Orientation / Consciousness: awake, oriented to person, oriented to place and oriented to time HEENT normocephalic, head/scalp atraumatic and moist oral mucous membranes Eyes PERRL, EOMs intact bilaterally and conjunctivae normal Neck supple, no JVD, thyroid normal and no carotid bruits General: trachea midline Resp normal respiratory effort, no retractions, no use of accessory muscles and clear to auscultation bilaterally Auscultation: Negative for rales, rhonchi or wheezes Cardio regular rate, regular rhythm, S1 normal heart sound, S2 normal heart sound, no murmurs, no rub and no gallops GI soft to palpation and non-distended GI Narrative: Patient's abdomen is tender to palpation over the mid abdominal area, no rebound abdominal tenderness was noted, bowel sounds are present in all 4 quadrant Extremity no clubbing, cyanosis or edema Skin no rashes or lesions noted General Skin Exam: no breakdown Neuro oriented x3, CN's II-XII intact bilaterally, moves all extremities, no focal motor deficits and no sensory deficits noted Sensorium / Orientation: awake and alert Speech: speech normal Psych affect normal Results Lab / Micro Data 06/21/23 09:25 06/21/23 09:25 Labs: Laboratory Results - last 24 hr 06/21/23 09:25: WBC 9.1, RBC 5.19, Hgb 15.4, Hct 46.3, MCV 89.2, MCH 29.7, MCHC 33.3, RDW Std Deviation 44.8 H, RDW Coeff of Sulema 13.7, Plt Count 265, MPV 11.1, Immature Gran % (Auto) 0.400, Neut % (Auto) 70.0, Lymph % (Auto) 16.4 L, Nuckolls % (Auto) 8.1, Eos % (Auto) 3.7, Baso % (Auto) 1.4 H, Absolute Neuts (auto) 6.4, Absolute Lymphs (auto) 1.49, Nucleated RBC % 0, Sodium 139, Potassium 4.0, Chloride 111 H, Carbon Dioxide 24.0, Anion Gap 4 L, BUN 10, Creatinine 1.15, Estim Creat Clear Calc 91.67, Est GFR (MDRD) Af Amer 88, Est GFR (MDRD) Non-Af 73, BUN/Creatinine Ratio 8.7 L, Glucose 107 H, Calcium 9.2, Total Bilirubin 0.40, Direct Bilirubin 0.10, AST 19, ALT 27, Alkaline Phosphatase 56, Total Protein 7.6, Albumin 4.1, Globulin 3.5, Lipase 478 H Assessment & Plan Assessment/Plan (1) Pancreatitis: PLAN: Plan 1. Acute pancreatitis-patient will be admitted to medical floor, he will be given IV fluids and IV analgesics, he will be maintained on a clear liquid diet, he will undergo an EGD today to rule out peptic ulcer disease or gastric or esophageal abnormality. #2 hyperemesis-probably secondary to marijuana usage, patient denies currently smoking marijuana but this may be from effects of using it recently. Total clinical time spent by myself addressing the patient's medical issues, reviewing all of his data, and collaborating with patient's care team: 55 minutes Charges/Coding Visit Charges Inpatient E&M: 66111 Init Hosp L2
[2023-06-21] MEDS: Ondansetron 4 MG/2 ML Vial IV (21:20)
--- NOTE | 2023-06-22 | GASB_PTH ---
PATIENT: SERGO WILKES LOC: [facility] U#:[id number] AGE/SX: 47/M ROOM: [facility] RE06/21/[address]: Dr. Ralph Holguin, : 1975 BED: 1 DIS: 06/22/2023 SPEC #: [id number] RECD: 06/22/23 12:50 STATUS: TAHIR REQ #: [id number] KARRI: 06/22/23 00:[address]: Ra Laurahsaan DEPT: SURGICAL PATHOLOGY RECD BY: Sergo Espinoza ENTERED: 06/22/23 12:51 SP TYPE: Gastric Bx OTHR DR: Dr. Ralph Holguin, DO No Primary Care Phys Tissues: A - Duodenum, NOS B - Gastric mucous membrane Procedures: Surgery Specimen Level IV Comments: @ Ordering doctor for SUIV edited from to @ by BASILIA at 06/22/23 [id number] @ Submitting doctor edited from to @ by BASILIA at 06/22/23 4177 HEADER OPERATION: EGD PRE-OP DIAGNOSIS: Colitis, acute pancreatitis TISSUE SUBMITTED: A- Duodenum biopsy, B- Gastric body biopsy MICROSCOPIC DIAGNOSIS A. Duodenum, biopsy: A fragment of duodenal mucosa, no pathologic diagnosis. B. Gastric body, biopsy: Mild gastritis. See microscopic description and comment. STIVEN/ 06/23/2023 COMMENT B. The results of immunohistochemistry for Helicobacter pylori will be reported separately ([id number]). MICROSCOPIC DESCRIPTION Slides are reviewed. B. The specimen shows fragments of gastric mucosa with chronic inflammatory cell infiltrates in the lamina propria consisting of lymphocytes and plasma cells, consistent with mild chronic gastritis. GROSS DESCRIPTION A. Received in fixative is one container labeled with the patient's name and designated Duodenum biopsy. The specimen consists of one irregular fragment of light thompson soft tissue that measures 0.4 x 0.4 x 0.1 cm. The specimen is totally submitted in one cassette. B. Received in fixative is one container labeled with the patient's name and designated Gastric body biopsy. The specimen consists of two irregular fragments of light thompson soft tissue that in aggregate measure 1.0 x 0.5 x 0.1 cm. The specimen is totally submitted in one cassette. Carson 06/22/23 TC:3 CPT:45134o6
[2023-06-22] MEDS: 0.9% Normal Saline (1000mL) 1,000 ML 150 ML IV ×2 (00:20→05:15)
[2023-06-22 02:00] VITALS: BP 123/72; PULSE 73; RESP 14; TEMP 36.8; O2SAT 100
[2023-06-22] MEDS: HYDROmorphone 0.5 MG/0.5 ML SYRINGE IV ×2 (03:19→08:39)
[2023-06-22 08:10] LABS: AST(SGOT) 12 U/L (15-37); Alanine Aminotransfer ALT/SGPT 20 U/L (16-61); Albumin, Serum 3.1 g/dL (3.2-5.0); Alkaline Phosphatase 39 U/L (45-117); Globulin 2.7 g/dL (2.2-4.2); Protein, Total 5.8 g/dL (6.4-8.2)
[2023-06-22 08:31] VITALS: BP 132/83; PULSE 72; RESP 14; TEMP 36.7; O2SAT 98
[2023-06-22] MEDS: 0.9% Saline Lock 10 ML Syringe IV (08:39)
[2023-06-22] MEDS: Ondansetron 4 MG/2 ML Vial IV (08:39)
--- NOTE | 2023-06-22 14:08 | DCINST_ITS ---
Discharge Instructions Diet Discharge Diet: No restrictions Activity Discharge Activity: Return to Normal Activity Weight Bearing Status: Full weight bearing Follow Up Care Test Results: Test results from this visit will be discussed in further detail at your follow- up appointment, if applicable. Discharge Plan Admission Admit Date/Time: 06/21/23 10:56 Primary Reason for Your Visit: pancreatitis Attending Provider: Ralph Holguin Primary Care Provider: Care Physician,No Primary Discharge Orders/Prescriptions Prescriptions: No Action albuterol sulfate [ProAir HFA] 90 mcg/actuation HFA aerosol inhaler 2 inh inhalation Q6H PRN (Reason: shortness of breath or wheezing) promethazine 25 mg tablet 25 mg PO Q6H PRN (Reason: nausea and vomiting) Qty: 20 0RF Rx Instructions: 1/2-1 every six hours as needed for nausea hydrocodone-acetaminophen 5-325 mg tablet 1 tab PO Q4H PRN (Reason: pain) 3 Days Qty: 15 0RF Rx Instructions: use for abdominal apin dicyclomine 20 mg tablet 20 mg PO TID Qty: 15 0RF Referrals / Follow Up: Care Physician,No Primary [Primary Care Provider] -
--- NOTE | 2023-06-22 14:08 | PCM.DC ---
Discharge Instructions Diet Discharge Diet: No restrictions Activity Discharge Activity: Return to Normal Activity Weight Bearing Status: Full weight bearing Follow Up Care Test Results: Test results from this visit will be discussed in further detail at your follow-up appointment, if applicable. Discharge Plan Admission Admit Date/Time: 06/21/23 10:56 Primary Reason for Your Visit: pancreatitis Attending Provider: Ralph Holguin Primary Care Provider: Care Physician,No Primary Discharge Orders/Prescriptions Prescriptions: New hydrocodone-acetaminophen 5-325 mg tablet 1 tab PO Q6H PRN (Reason: pain) 5 Days Qty: 15 0RF promethazine 25 mg tablet 25 mg PO Q6H PRN (Reason: nausea and vomiting) Qty: 14 0RF pantoprazole [Protonix] 40 mg tablet,delayed release (DR/EC) 40 mg PO DAILY Qty: 30 0RF Continued albuterol sulfate [ProAir HFA] 90 mcg/actuation HFA aerosol inhaler 2 inh inhalation Q6H PRN (Reason: shortness of breath or wheezing) dicyclomine 20 mg tablet 20 mg PO TID Qty: 15 0RF Discontinued promethazine 25 mg tablet 25 mg PO Q6H PRN (Reason: nausea and vomiting) Qty: 20 0RF Rx Instructions: 1/2-1 every six hours as needed for nausea hydrocodone-acetaminophen 5-325 mg tablet 1 tab PO Q4H PRN (Reason: pain) 3 Days Qty: 15 0RF Rx Instructions: use for abdominal apin Referrals / Follow Up: Care Physician,No Primary [Primary Care Provider] - Nadege Joy [Non-Staff] - Within 1 Month (call for appointment) Disposition Disposition (needs filled in before D/C Order can be placed): Home, Self Care
--- NOTE | 2023-06-22 14:18 | DS.PCM_ITS ---
Providers Date of Admission: 06/21/23 Date of Discharge: 06/22/23 Primary Care Physician: No Primary Care Phys Reason For Visit: PANCREATITIS Diagnosis Discharge Diagnosis (1) Pancreatitis: Status: Acute Code(s): K85.90 - Acute pancreatitis without necrosis or infection, unspecified Plan 1. Acute pancreatitis-etiology unclear #2 hyperemesis-probably secondary to marijuana usage, patient denies currently smoking marijuana but this may be from effects of using it recently. Total clinical time spent by myself addressing the patient's medical issues, reviewing all of his data, and collaborating with patient's care team: 55 minutes Medications at Discharge Home Medications albuterol sulfate 90 mcg/actuation aerosol inhaler (ProAir HFA) 2 inh inhalation Q6H PRN shortness of breath or wheezing 06/03/23 dicyclomine 20 mg tablet 20 mg PO TID abdominal cramps #15 tabs 06/05/23 hydrocodone-acetaminophen 5-325mg 5mg-325mg 1 tab PO Q6H PRN pain 5 days #15 tabs 06/22/23 pantoprazole 40 mg tablet,delayed release (Protonix) 40 mg PO DAILY #30 tabs 06/22/23 promethazine 25 mg tablet 25 mg PO Q6H PRN nausea and vomiting #14 tabs 06/22/23 Hospital Course Operations None Procedures EGD Summary of Care Provided Minutes Spent on Discharge: 30 Hospital Course: This 47-year-old male was seen in the emergency room at [facility] with complaints of nausea vomiting and mid abdominal pain. Patient recently had been admitted to the to the hospital here for what was felt to be possible pancreatitis but this was ruled out. Labs done in the emergency room s howed a slightly elevated lipase, patient was admitted to PCU for pancreatitis and placed on IV fluid and IV analgesic. Patient had recently underwent an MRCP and a gastric emptying study on 06/05/2023 and so no imaging studies were repeated. Patient denied any current marijuana usage although he had only stopped approximately 2 weeks ago. Patient underwent an EGD which showed no abnormality. It was felt that the patient's problems probably related to hyperemesis from marijuana. This on a backdrop of acute pancreatitis from an unknown reason. On 06/22/2023, patient was seen and examined: On examination he appeared in good health and spirits. Vital signs as documented. Skin warm and dry and without overt rashes. Neck without JVD, neck was supple, trachea midline, thyroid was normal. Lungs clear bilaterally, normal air movement was noted. Heart exam notable for regular rhythm, normal sounds and absence of murmurs, rubs or gallops. Abdomen unremarkable and without evidence of organomegaly, masses, or abdominal aortic enlargement. Bowel sounds are present, abdomen is not distended. Extremities nonedematous, no cyanosis was noted, no clubbing was noted. Neuro: Cranial nerves II through XII are grossly intact, no focal motor deficits were noted, sensation to light touch and pinprick intact, motor exam 5/5 throughout. Psych: Patient is alert and oriented x3, he does not appear anxious or depressed, he does not appear agitated. It was felt that the patient was stable for discharge home on 06/22/2023. Weight / BMI Weight Weight: 116 kg Body Mass Index (BMI) 33.7 ABG / Lab / Microbiology Data 06/21/23 09:25 06/21/23 09:25 Laboratory: Laboratory Results - last 24 hr 06/22/23 07:05: Total Bilirubin 0.80, Direct Bilirubin 0.20, AST 12 L, ALT 20, Alkaline Phosphatase 39 L, Total Protein 5.8 L, Albumin 3.1 L, Globulin 2.7 D/C Instructions Discharge Diet: No restrictions Weight Bearing Status: Full weight bearing Meaningful Use Info Meaningful Use Meaningful Use Diagnoses (Choose all that apply): None applicable Ischemic Stroke Statin Dosing Therapy Reference: STATIN DOSE THERAPY REFERENCE: * Patients > 75 years receive moderate or high dose statin therapy. * Patients 75 years or YOUNGER should receive HIGH intensity statin dose unless contraindicated. You will be required to document reason for non-treatment if statin daily dose does not meet guidelines. HIGH DOSE STATIN THERAPY DAILY Atorvastatin > than or = to 40 mg Rosuvastatin > than or = to 20 mg Amlodipine + Atorvastatin > than or = to 2.5/40 mg Ezetimibe + Simvastatin 10/80 mg Simvastatin 80mg Discharge Plan Admission Admit Date/Time: 06/21/23 10:56 Primary Reason for Your Visit: pancreatitis Attending Provider: Ralph Holguin Primary Care Provider: Care Physician,No Primary Discharge Orders/Prescriptions Prescriptions: New hydrocodone-acetaminophen 5-325 mg tablet 1 tab PO Q6H PRN (Reason: pain) 5 Days Qty: 15 0RF promethazine 25 mg tablet 25 mg PO Q6H PRN (Reason: nausea and vomiting) Qty: 14 0RF pantoprazole [Protonix] 40 mg tablet,delayed release (DR/EC) 40 mg PO DAILY Qty: 30 0RF Continued albuterol sulfate [ProAir HFA] 90 mcg/actuation HFA aerosol inhaler 2 inh inhalation Q6H PRN (Reason: shortness of breath or wheezing) dicyclomine 20 mg tablet 20 mg PO TID Qty: 15 0RF Discontinued promethazine 25 mg tablet 25 mg PO Q6H PRN (Reason: nausea and vomiting) Qty: 20 0RF Rx Instructions: 1/2-1 every six hours as needed for nausea hydrocodone-acetaminophen 5-325 mg tablet 1 tab PO Q4H PRN (Reason: pain) 3 Days Qty: 15 0RF Rx Instructions: use for abdominal apin Referrals / Follow Up: Nadege Joy [Non-Staff] - Within 1 Month (call for appointment) Care Physician,No Primary [Primary Care Provider] - Disposition Disposition (needs filled in before D/C Order can be placed): Home, Self Care Charges/Coding Visit Charges Inpatient E&M: 23212 Disch Hosp
--- NOTE | 2023-06-22 14:30 | CASEMGMT ---
MUMTAZ PROCTOR chart review: Patient was admitted 06/02-06/05/23 for colitis that was ruled out and hyperemesis 2nd to marijuana usage. See assessment from 06/05/23. Patient was discharge to home with instructions to call and schedule appointment at [facility]. Patient returned to [facility] ED on 06/21/23 for abdominal pain and N/V. Patient was admitted for possible pancreatitis and hyperemesis. MUMTAZ PROCTOR in to discuss readmission and needs at discharge. Patient states he was taking medications as directed. Patient had not followed up with [facility]. MUMTAZ PROCTOR encourage patient to schedule appt and follow-up care. Patient voiced understanding. Patient had no further question or concerns at this time.
[2023-06-22 15:01] VITALS: BP 154/92; PULSE 62; RESP 12; TEMP 37.1; O2SAT 98
== END 2023-06-22 15:00 | disposition home or self-care (01) ==
LOC: ED 10:41 → PCU 11:49
PROVIDERS: Internal Medicine Gastroenterology; Admitting Provider Internal Medicine; Emergency Provider Emergency Medicine; Visit Provider Internal Medicine
PROC: 0DJ08ZZ Inspection of Upper Intestinal Tract, Via Natural or Artificial Opening Endoscopic (ICD-10-PCS; CPT 43235; principal; 2023-06-21 17:55)
DX: K85.90 Acute pancreatitis without necrosis or infection, unspecified (principal); E66.9 Obesity, unspecified; I10 Essential (primary) hypertension; K29.80 Duodenitis without bleeding; F12.91 Cannabis use, unspecified, in remission; Z68.34 Body mass index [BMI] 34.0-34.9, adult; Z79.899 Other long term (current) drug therapy; Z87.891 Personal history of nicotine dependence; K76.0 Fatty (change of) liver, not elsewhere classified; K44.9 Diaphragmatic hernia without obstruction or gangrene
CPT/HCPCS: 43239; 36415; 80048; 80076; 83690; 85025; 88305; 88342; 96361; 96372; 96374; 96375; 96376; 99221; 99284; 99406; A4216; G0378; J2405

== ENCOUNTER 2023-09-03 10:56 | Emergency (ER) | payer MEDICAID, SELFPAY ==
[2023-09-03 10:56] VITALS: BP 186/111; PULSE 60; RESP 24; TEMP 35.5; O2SAT 97
--- NOTE | 2023-09-03 11:08 | EX.ED.DYSGE1 ---
HPI <OUSMANE Cantrell - Last Filed: 09/03/23 13:35> History of Present Illness Chief Complaint: Abd Pain Narrative Narrative: 47-year-old male woke up this morning with epigastric pain and nausea and vomiting. He states it feels like prior episodes of pancreatitis. He states a couple years ago he had what sounds like necrotizing pancreatitis and the head of his pancreas surgically removed at . Since then he gets flares of chronic pancreatitis every few months. Last night he had a couple mixed drinks and this morning woke up with the pain. He has antiemetics and antacid medications but it did not help. He denies hematemesis, melena, or hematochezia. [facility] <OUSMANE Cantrell - Last Filed: 09/03/23 13:35> [facility] Medical History Acute pancreatitis Colitis Diverticulitis HTN (hypertension) Intestinal ulcer Marijuana dependence Marijuana smoker Pancreatitis Personality disorder Home Medications ?Medication ?Instructions ?Recorded ?Last Taken ?Type albuterol sulfate 90 mcg/actuation 2 inh inhalation Q6H PRN shortness 06/03/23 06/03/23 History aerosol inhaler (ProAir HFA) of breath or wheezing dicyclomine 20 mg tablet 20 mg PO TID abdominal cramps #15 06/05/23 06/21/23 Rx tabs hydrocodone-acetaminophen 5-325mg 1 tab PO Q6H PRN pain 5 days #15 06/22/23 Unknown Rx 5mg-325mg tabs pantoprazole 40 mg tablet,delayed 40 mg PO DAILY #30 tabs 06/22/23 Unknown Rx release (Protonix) promethazine 25 mg tablet 25 mg PO Q6H PRN nausea and 06/22/23 Unknown Rx vomiting #14 tabs albuterol sulfate 90 mcg/actuation 1 - 2 puff inhalation Q4H PRN PRN 09/03/23 Unknown Rx aerosol inhaler (Ventolin HFA) Wheezing 30 days #6.7 grams oxycodone-acetaminophen 5 mg-325 1 tab PO Q6H PRN pain 3 days #12 09/03/23 Unknown Rx mg tablet (Percocet) tabs Allergy/AdvReac Type Severity Reaction Status Date / Time No Known Allergies Allergy Verified 06/21/23 09:44 Social History Smoking Status: Former smoker ROS <OUSMANE Cantrell - Last Filed: 09/03/23 13:35> ROS ED ROS Narrative Constitutional: Negative for fever, chills, malaise. CVS: Negative for chest pain. Respiratory: Negative for shortness of breath. GI: Positive for abdominal pain, nausea, vomiting. EXAM <OUSMANE Cantrell - Last Filed: 09/03/23 13:35> Physical Exam Narrative Exam Narrative: CONST: Patient appears uncomfortable hunched over in bed. EYES: Normal inspection. NECK: Normal inspection. RESP: No respiratory distress, CTAB. CVS: Regular rate and rhythm, no murmur, no gallop. ABD: Soft with midline epigastric tenderness, no guarding or rebound, nondistended. SKIN: Color normal, no rash, warm, dry, intact. EXTREMITIES: Normal appearance, no pedal edema. NEURO: Alert and answering questions appropriately. PSYCH: Normal affect. Const Vital Signs: 09/03/23 10:56 09/03/23 13:00 Temperature 95.9 F L 97.6 F L Temperature Source Temporal Pulse Rate 60 55 L Respiratory Rate 24 H 17 Blood Pressure 186/111 H 182/87 H Blood Pressure Mean 136 118 Pulse Ox 97 99 Oxygen Delivery Method Room Air <Dr. Rich Velez MD - Last Filed: 09/03/23 11:17> Physical Exam Const Vital Signs: 09/03/23 10:56 09/03/23 13:00 Temperature 95.9 F L 97.6 F L Temperature Source Temporal Pulse Rate 60 55 L Respiratory Rate 24 H 17 Blood Pressure 186/111 H 182/87 H Blood Pressure Mean 136 118 Pulse Ox 97 99 Oxygen Delivery Method Room Air MDM <OUSMANE Cantrell - Last Filed: 09/03/23 13:35> MDM MDM Narrative Medical decision making narrative: History gathered from: Patient and family member Differential: Gastritis, pancreatitis Patient has acute epigastric pain and nausea and vomiting since this morning after recent alcohol use. He has a history of recurrent pancreatitis. He appears in pain and uncomfortable but nontoxic. He is hypertensive with otherwise stable vital signs. She has tenderness in the epigastrium without peritoneal signs. CBC and CMP are unremarkable. Lipase 401. He still had some pain in vomiting and was given single dose of IV Dilaudid, Toradol, and Zofran. He was feeling well enough to go home. I prescribed Percocet and he has Zofran already at home. He also requested a refill of his albuterol inhaler. I thoroughly discussed clear liquid diet, alcohol cessation, return precautions and that he should follow-up with GI. He was discharged in stable condition. Patient seen and evaluated with SOPHY. I personally interviewed and examined the patient. I was involved in all aspects of patient's orders, interpretation of results, and treatment. 47-year-old male history of recurrent pancreatitis. Recent alcohol use. Started having epigastric abdominal this morning. Associated nausea and vomiting. No hematemesis or melena. Physical exam 47-year-old gentleman little in tears due to the pain. Vital signs are stable. He is afebrile. H EENT exam unremarkable. Lungs clear. Heart regular rhythm. Abdomen soft nondistended normal bowel sounds is exquisite epigastric tenderness. There is no hernia or mass or any signs of obstruction. Moving all 4 extremities. Nontender no edema. Neurologically is awake and alert. Patient will be worked up for possible pancreatitis versus gastritis versus other etiologies. Initially when I can do any imaging labs. Treated with IV fluids, morphine and Zofran and some Protonix. Reassess. Lab Data Labs: Laboratory Results - last 24 hr 09/03/23 11:13 WBC 9.8 RBC 5.39 Hgb 16.5 Hct 49.8 MCV 92.4 MCH 30.6 MCHC 33.1 RDW Std Deviation 45.6 H RDW Coeff of [place]ulema 13.3 Plt Count 290 MPV 10.8 Immature Gran % (Auto) 0.400 Neut % (Auto) 57.7 Lymph % (Auto) 23.9 [place] % (Auto) 10.9 H Eos % (Auto) 5.5 H Baso % (Auto) 1.6 H Absolute Neuts (auto) 5.6 Absolute Lymphs (auto) 2.34 Nucleated RBC % 0 Sodium 140 Potassium 4.0 Chloride 109 H Carbon Dioxide 26.0 Anion Gap 5 BUN 17 Creatinine 1.14 Est GFR (MDRD) Af Amer 89 Est GFR (MDRD) Non-Af 74 BUN/Creatinine Ratio 14.9 Glucose 110 H Calcium 9.5 Total Bilirubin 0.40 AST 30 ALT 52 Alkaline Phosphatase 60 Total Protein 7.2 Albumin 3.7 Globulin 3.5 Albumin/Globulin Ratio 1.1 Lipase 401 H <Dr. Rich Velez MD - Last Filed: 09/03/23 11:17> [facility] Narrative Medical decision making narrative: Patient seen and evaluated with SOPHY. I personally interviewed and examined the patient. I was involved in all aspects of patient's orders, interpretation of results, and treatment. 47-year-old male history of recurrent pancreatitis. Recent alcohol use. Started having epigastric abdominal this morning. Associated nausea and vomiting. No hematemesis or melena. Physical exam 47-year-old gentleman little in tears due to the pain. Vital signs are stable. He is afebrile. H EENT exam unremarkable. Lungs clear. Heart regular rhythm. Abdomen soft nondistended normal bowel sounds is exquisite epigastric tenderness. There is no hernia or mass or any signs of obstruction. Moving all 4 extremities. Nontender no edema. Neurologically is awake and alert. Patient will be worked up for possible pancreatitis versus gastritis versus other etiologies. Initially when I can do any imaging labs. Treated with IV fluids, morphine and Zofran and some Protonix. Reassess. History & Record Review Discussion w/independent historian: Patient and Family Additional record(s) reviewed:: Prior inpatient record, Prior outpatient record, Prior ED visit and Prior labs Lab Data Labs: Laboratory Results - last 24 hr 09/03/23 11:13 WBC 9.8 RBC 5.39 Hgb 16.5 Hct 49.8 MCV 92.4 MCH 30.6 MCHC 33.1 RDW Std Deviation 45.6 H RDW Coeff of [place] 13.3 Plt Count 290 MPV 10.8 Immature Gran % (Auto) 0.400 Neut % (Auto) 57.7 Lymph % (Auto) 23.9 [place] % (Auto) 10.9 H Eos % (Auto) 5.5 H Baso % (Auto) 1.6 H Absolute Neuts (auto) 5.6 Absolute Lymphs (auto) 2.34 Nucleated RBC % 0 Sodium 140 Potassium 4.0 Chloride 109 H Carbon Dioxide 26.0 Anion Gap 5 BUN 17 Creatinine 1.14 Est GFR (MDRD) Af Amer 89 Est GFR (MDRD) Non-Af 74 BUN/Creatinine Ratio 14.9 Glucose 110 H Calcium 9.5 Total Bilirubin 0.40 AST 30 ALT 52 Alkaline Phosphatase 60 Total Protein 7.2 Albumin 3.7 Globulin 3.5 Albumin/Globulin Ratio 1.1 Lipase 401 H Discharge Plan Triage Chief Complaint: Abd Pain ED Midlevel Provider: Tammy Bojorquez ED Provider: Rich Velez Dx/Rx/DC Orders Clinical Impression: Acute alcoholic pancreatitis Instructions: ED Pancreatitis Prescriptions: New oxycodone-acetaminophen [Percocet] 5-325 mg tablet 1 tab PO Q6H PRN (Reason: pain) 3 Days Qty: 12 0RF albuterol sulfate [Ventolin HFA] 90 mcg/actuation HFA aerosol inhaler 1 - 2 puff inhalation Q4H PRN PRN (Reason: Wheezing) 30 Days Qty: 6.7 0RF No Action albuterol sulfate [ProAir HFA] 90 mcg/actuation HFA aerosol inhaler 2 inh inhalation Q6H PRN (Reason: shortness of breath or wheezing) dicyclomine 20 mg tablet 20 mg PO TID Qty: 15 0RF hydrocodone-acetaminophen 5-325 mg tablet 1 tab PO Q6H PRN (Reason: pain) 5 Days Qty: 15 0RF promethazine 25 mg tablet 25 mg PO Q6H PRN (Reason: nausea and vomiting) Qty: 14 0RF pantoprazole [Protonix] 40 mg tablet,delayed release (DR/EC) 40 mg PO DAILY Qty: 30 0RF Primary Care Provider: Care Physician,No Primary Referrals: Friend,Master, [Med Staff - Active Staff] - Care Physician,No Primary [Primary Care Provider] - Activity Restrictions/Additional Instructions: Drink clear fluids only for the next 2 days then as her pain starts to improve he can slowly reintroduce a bland diet. Take the Percocet and the nausea medicine out of the home. I advise you to completely stop drinking alcohol or you will keep getting pancreatitis. Print Language: Serbian Disposition Disposition: Home, Self Care Discharge Date/Time: 09/03/23 13:32
[2023-09-03] MEDS: 0.9% Normal Saline (1000mL) 1,000 ML 999 ML IV (11:16)
[2023-09-03] MEDS: Ondansetron 4 MG/2 ML Vial IV ×2 (11:17→12:44)
[2023-09-03] MEDS: Pantoprazole Sodium 40 MG in 0.9% Normal Saline (100mL MB+) 100 ML 330 MG IV (11:18)
[2023-09-03 11:24] LABS: Absolute Lymphocyte Count 2.34 X10^3/uL (0.83-4.51); Absolute Neutrophil Count 5.6 X10^3/uL (2.0-7.7); Basophil# 0.16 X10^3/uL; Basophil% 1.6 % (0-1); Eosinophil# 0.54 X10^3/uL; Eosinophils% 5.5 % (0-5); Hematocrit 49.8 % (40-54); Hemoglobin 16.5 g/dL (13.0-16.5); Lymphocyte # 2.34 X10^3/ul (0.83-4.51); Lymphocyte % 23.9 % (19-41); Mean Corp Hgb Conc 33.1 g/dL (32-36); Mean Corpuscular Hgb 30.6 pg (27.0-32.0); Mean Corpuscular Volume 92.4 fL (80-94); Mean Platelet Vol. 10.8 fl (6.2-12.0); Monocyte# 1.07 X10^3/uL; Monocyte% 10.9 % (0-10); NRBC Flagged by Analyzer 0 % (0-5); Neutrophil # 5.64 X10^3/uL (2.7-7.7); Neutrophil % 57.7 % (47-70); Platelet Count 290 K/mm3 (150-450); RBC Distribution Width CV 13.3 % (11.6-14.6); RBC Distribution Width SD 45.6 fl (35.1-43.9); Red Blood Count 5.39 M/mm3 (4.6-6.2); White Blood Count 9.8 K/mm3 (4.4-11.0)
[2023-09-03] MEDS: Morphine 4 MG/ML Syringe IV (11:24)
[2023-09-03 11:40] LABS: ALB/GLOB Ratio 1.1 RATIO (0.9-2.4); AST(SGOT) 30 U/L (15-37); Alanine Aminotransfer ALT/SGPT 52 U/L (16-61); Albumin, Serum 3.7 g/dL (3.2-5.0); Alkaline Phosphatase 60 U/L (45-117); Anion Gap 5 (5-15); BUN 17 mg/dL (7-18); BUN/Creat Ratio 14.9 RATIO (10-20); Calcium,Total 9.5 mg/dL (8.5-10.1); Chloride 109 mmol/L (98-107); Creatinine, Serum 1.14 mg/dL (0.70-1.30); EST Glomerular Filtration Rate 74 mL/min (>60); Est Glom Filt Rate - Afr Amer 89 mL/min (>60); Globulin 3.5 g/dL (2.2-4.2); Glucose 110 mg/dL (74-106); Lipase 401 U/L (13-75); Protein, Total 7.2 g/dL (6.4-8.2); Sodium Level 140 mmol/L (136-145)
--- NOTE | 2023-09-03 12:25 | ED.RN ---
VISITOR OUT TO NURSES STATION REQUESTING HIS NURSE. DR. DÍAZ MADE AWARE.
[2023-09-03] MEDS: HYDROmorphone 1 MG/ML Syringe IV (12:26)
[2023-09-03] MEDS: Ketorolac 15 MG/ML Vial IV (12:26)
[2023-09-03 13:00] VITALS: BP 182/87; PULSE 55; RESP 17; TEMP 36.4; O2SAT 99
== END 2023-09-03 13:32 | disposition home or self-care (01) ==
PROVIDERS: Physician Assistant; Emergency Provider Emergency Medicine; Visit Provider Emergency Medicine
DX: K85.20 Alcohol induced acute pancreatitis without necrosis or infection (principal); K86.1 Other chronic pancreatitis; I10 Essential (primary) hypertension; Z87.891 Personal history of nicotine dependence
CPT/HCPCS: 80053; 83690; 85025; 96365; 96366; 96375; 96376; 99283; J7030; A4216; J2405

== ENCOUNTER 2024-03-24 06:30 | Emergency (ER) | payer MEDICAID, SELFPAY ==
[2024-03-24 06:31] VITALS: BP 140/74; PULSE 77; RESP 15; TEMP 37; O2SAT 98; BMI 31.9
--- NOTE | 2024-03-24 06:38 | EKG12_ITS ---
Test Reason : HTN Blood Pressure : */* mmHG Vent. Rate : 76 BPM Atrial Rate : 76 BPM P-R Int : 134 ms QRS Dur : 94 ms QT Int : 402 ms P-R-T Axes : 35 54 37 degrees QTcB Int : 452 ms Normal sinus rhythm R R' in V1 Borderline ECG Confirmed by PIERRE SIDDIQUI, KIMBERLY ([id number]), photographic editor NANCY MIRZA ([id number]) on 03/26/2024 9:03:34 AM Referred By: PINA Confirmed By: KIMBERLY JAY MD
[2024-03-24] MEDS: 0.9% Normal Saline (1000mL) 1,000 ML 1000 ML IV (06:58)
[2024-03-24] MEDS: Ipratropium/Albuterol Sulfate 3 ML AMPUL.NEB INHALATION (07:09)
[2024-03-24] MEDS: Albuterol 2.5 MG/3 ML VIAL.NEB. INHALATION ×3 (07:09)
[2024-03-24 07:10] VITALS: PULSE 71; RESP 18
--- NOTE | 2024-03-24 07:13 | EDS_ITS ---
HPI History of Present Illness Chief Complaint: General Illness Detail of Chief Complaint: Multiple symptoms Informant: patient Onset/Context/Timing Onset: Weeks (Illness started March 17) Context: Sudden Onset Timing: Continuous and Waxes and wanes Quality: Systemic viral like symptoms Location: Predominantly respiratory and GI Current Severity: Mild Maximum Severity: Severe Worsened by: Nothing specific Relieved by: Temperature improved with Tylenol Associated Symptoms Associated Symptoms: Fever documented at 102.1 ?F, myalgias and arthralgias, URTI and diarrhea Narrative Narrative: Patient is a 48-year-old male. He has history of asthma. He is a smoker of 1 pack/day. He presents because of feve (102.1 ?F), myalgias and arthralgias, nasal congestion, productive cough with colored sputum (light yellow-green), patient now presents with cramping generalized abdominal pain. He has had multiple episodes of diarrhea the past couple days. Not noted blood or mucus in his diarrhea. He denies nausea or vomiting. He does complain of headache. [place] photophobia, neck pain or neck stiffness. He denies ear discomfort. Patient denies chest discomfort. Does complain of pain with breathing. He states it feels like it is inflamed. He denies pleuritic pain. He denies history of VTE. He denies leg pain, swelling or discoloration. He has not noted a rash. He has been around others who have been ill and apparently diagnosed with influenza, he believes. Prior similar symptoms: No Recent Illness/Hospitalization: No PFSH PFS Medical History Pancreatitis Marijuana dependence Intestinal ulcer Colitis Diverticulitis Acute pancreatitis Pancreatitis Personality disorder Marijuana smoker HTN (hypertension) Home Medications ?Medication ?Instructions ?Recorded ?Last Taken ?Type NK 03/24/24 Unknown History Allergy/AdvReac Type Severity Reaction Status Date / Time No Known Allergies Allergy Verified 06/21/23 09:44 Social History Smoking Status: Current every day smoker tobacco type: cigarettes and e- cigarettes ROS ROS ED Constitutional Constitutional ED: Reports chills, fever(s) and sweats Eyes Eyes: Denies blurry vision, change in vision or diplopia ENT ENT ED: Reports rhinorrhea; Denies ear pain or sore throat Cardiovascular Cardiovascular: Denies chest pain, orthopnea, palpitations, paroxysmal nocturnal dyspnea or racing heartbeat Respiratory/Chest Respiratory/Chest: Reports cough, dyspnea and sputum; Denies dyspnea on exertion, orthopnea or paroxysmal nocturnal dyspnea Gastrointestinal Gastrointestinal: Reports abdominal pain and diarrhea; Denies constipation, karoline na, nausea or vomiting Genitourinary Genitourinary ED: Denies dysuria, hematuria or urinary frequency Musculoskeletal Musculoskeletal: Reports arthralgias and myalgias; Denies neck pain Integumentary Denies rash Neurologic Neurologic: Reports headache(s) and weakness; Denies paresthesias Endocrine Endocrinology: Denies cold intolerance or heat intolerance Hematologic/Lymphatic Hematologic/Lymphatic: Reports systems reviewed and no addt'l complaints, except as documented EXAM Physical Exam Const Vital Signs: 03/24/24 06:31 03/24/24 06:36 03/24/24 07:10 Temperature 98.6 F Temperature Source Oral Pulse Rate 77 71 Respiratory Rate 15 18 Respiratory Effort Normal Non-Labored Respiratory Pattern Tachypnea Normal Blood Pressure 140/74 H Blood Pressure Mean 96 Pulse Ox 98 Oxygen Delivery Method Room Air 03/24/24 08:31 Temperature Temperature Source Pulse Rate 78 Respiratory Rate 16 Respiratory Effort Respiratory Pattern Blood Pressure 137/87 H Blood Pressure Mean 103 Pulse Ox 98 Oxygen Delivery Method Blood pressure is elevated. He is not tachycardic, tachypneic or hypoxic. He did take Tylenol at 0530. I was informed of this by nurse because I had ordered Tylenol for him since he felt warmer than the documented temperature of 98.6. Positive well nourished and well developed Constitutional Narrative: Patient appears ill but not toxic. General Appearance ED: well developed and diaphoretic; Negative for cyanotic, NAD or pallor HEENT Reports dry mucous membranes HEENT Narrative: Head is atraumatic normocephalic. Ears normal. Nares patent with clear discharge. Mucosa is dry. Posterior pharynx is normal. Mouth ED: Yes dry mucous membranes Mouth: dry mucous membranes Eyes PERRL and EOMs intact bilaterally General Eye ED: Negative for pale conjunctiva or scleral icterus Neck no lymphadenopathy, supple and no JVD Chest Wall inspection of chest normal and palpation of chest normal Resp normal respiratory effort and No clear to auscultation bilaterally Resp Narrative: There is egophony right lower lobe. There may be slight increased vocal fremitus right lower lobe posteriorly as well. Auscultation: rales right lower and left base, wheezes expiratory wheezes and lower bilaterally and diminished lung sounds Cardio regular rate, regular rhythm, S1 normal heart sound, S2 normal heart sound and no murmurs GI normal to inspection, nondistended, normoactive bowel sounds, non-distended and no masses; Negative for non-tender or hepatosplenomegaly Auscultation: hypoactive bowel sounds Palpation: soft and tender other (Generalized) Back/Spine no CVA tenderness Extremity normal to inspection General Extremety ED: Negative for edema or tenderness General Extremity: Negative for edema Neuro oriented x3 and CN's II-XII intact bilaterally Sensorium / Orientation: alert Psych mental status grossly normal Skin no rashes or lesions noted, no wounds and skin turgor normal Skin Narrative: Patient is warm to touch and diaphoretic. General Skin Exam: Negative for jaundice or pallor MDM MDM MDM Narrative Medical decision making narrative: Suspect patient has a viral infection. Concerned patient may have a right lower lobe pneumonia. Chest x-ray was obtained. Also obtain rapid antigen for COVID, influenza and RSV. If patient has influenza and there is an infiltrate need to cover for staph infection. Since patient is wheezing and has history of asthma and is a smoker for approximately 25 years will treat with DuoNeb and albuterol. If he is still wheezing after treatment will administer bolus of prednisone. Because of the amount of diarrhea he reports BMP was obtained to assess renal function, CO2 anion gap and evaluate for hypokalemia. Prior records were reviewed. Patient has been seen for pancreatitis. Last admission was for pancreatitis May 2023. Dr. Ralph Friend's discharge summary was reviewed. Patient's had multiple ER visits for abdominal pain. Had 2 episodes in 2023. Prior was 2017 and 2014. He also was diagnosed with abdominal pain of unknown etiology. History & Record Review Additional record(s) reviewed:: Prior inpatient record (Documented MDM narrative), Prior ED visit and Prior labs Lab Data Attestation: I reviewed the patient's lab results. Lab results narrative: Basic metabolic panel reveals no abnormality. The BMP is normal. Rapid antigen for COVID, influenza and RSV were negative. Labs: Laboratory Results - last 24 hr 03/24/24 06:40 Sodium 136 Potassium 3.9 Chloride 107 Carbon Dioxide 25.0 Anion Gap 5 BUN 13 Creatinine 1.02 Estim Creat Clear Calc 117.58 Est GFR (MDRD) Af Amer 101 Est GFR (MDRD) Non-Af 83 BUN/Creatinine Ratio 12.7 Glucose 97 Calcium 9.3 EKG Initial EKG: Attestation: I personally reviewed and interpreted this EKG as follows: Interpretation: Sinus Rhythm (Rate is 76. RI interval is 134 ms. Cures duration 94 ms. QT duration 102 ms. [place] is normal. Patient has an RR prime in V1. This is nonspecific.) Treatment and Re-Evaluation :: Noted that patient requested pain medicine. He was treated with IV ketorolac since he has normal renal function and no allergies to NSAIDs. Discharge Plan Triage Chief Complaint: General Illness ED Provider: Sukhdeep Kidd Dx/Rx/DC Orders Clinical Impression: Systemic viral illness, Diarrhea, Acute dehydration, Elevated blood-pressure reading without diagnosis of hypertension Instructions: ED Viral Syndrome (Adult) Prescriptions: No Action NK Primary Care Provider: Care Physician,No Primary Referrals: Care Physician,No Primary [Primary Care Provider] - Activity Restrictions/Additional Instructions: 1. Take either 4 ibuprofen tablets every 8 hours or 2 Aleve tablets every 12 hours for the next 3 to 5 days for your aches and pains. 2. You may be ill for another 5 to 10 days. 3. Take Imodium for your diarrhea. Print Language: Ukrainian Disposition Disposition: Home, Self Care
[2024-03-24 07:15] LABS: Anion Gap 5 (5-15); BUN 13 mg/dL (7-18); BUN/Creat Ratio 12.7 RATIO (10-20); Calcium,Total 9.3 mg/dL (8.5-10.1); Chloride 107 mmol/L (98-107); Creatinine, Serum 1.02 mg/dL (0.70-1.30); EST Glomerular Filtration Rate 83 mL/min (>60); Est Glom Filt Rate - Afr Amer 101 mL/min (>60); Estimated Creatinine Clearance 117.58 ml/min; Glucose 97 mg/dL (74-106); Potassium 3.9 mmol/L (3.5-5.1); Sodium Level 136 mmol/L (136-145)
[2024-03-24 08:31] VITALS: BP 137/87; PULSE 78; RESP 16; O2SAT 98
--- NOTE | 2024-03-24 09:35 | RAD_ITS ---
INDICATION: Bilateral wheezing, rales RLL EXAMINATION/TECHNIQUE: X-RAY - XR Chest 2 Views COMPARISON: October 06, 2008 FINDINGS: LINES/DEVICES: None. LUNGS: There is a left basilar ill-defined opacity. No pneumothorax. MEDIASTINUM AND CARDIOVASCULAR STRUCTURES: Cardiac silhouette not enlarged. Central airways and mediastinal contour are unremarkable. BONES AND SOFT TISSUES: Unremarkable. RAD/Chest PA and Lateral IMPRESSION: Left basilar ill-defined opacity may reflect atelectasis and/or pneumonia. Electronically Signed: Kalli Steinberg MD at 11:22 EST ,
[2024-03-24 10:00] VITALS: BP 143/87; PULSE 88; RESP 18; O2SAT 97
[2024-03-24] MEDS: Ketorolac 15 MG/ML Vial IV (10:31)
== END 2024-03-24 10:39 | disposition home or self-care (01) ==
PROVIDERS: Emergency Provider Emergency Medicine; Visit Provider Emergency Medicine
DX: B34.9 Viral infection, unspecified (principal); R10.84 Generalized abdominal pain; J06.9 Acute upper respiratory infection, unspecified; R19.7 Diarrhea, unspecified; Z11.52 Encounter for screening for COVID-19; E86.0 Dehydration; R03.0 Elevated blood-pressure reading, without diagnosis of hypertension; J45.909 Unspecified asthma, uncomplicated; F17.210 Nicotine dependence, cigarettes, uncomplicated; F17.290 Nicotine dependence, other tobacco product, uncomplicated
CPT/HCPCS: 71046; 80048; 87631; 93005; 94640; 96361; 96374; 99284